=== PATIENT | female | born 1995 | race Caucasian/White ===

== ENCOUNTER 2016-03-16 18:21 | Emergency (ER) | payer OTHER ==
[~2016-03-16] VITALS: Ht 157.5 cm; Wt 82.0 kg
[~2016-03-16 18:21] MED LIST: BUTA1CAP PO; METR-1 PO; PARAIUD; antidepressant
[2016-03-16 18:23] VITALS: BP 145/63; PULSE 115; PULSE 15; RESP 16; TEMP 98.5; O2SAT 95
[2016-03-16] MEDS ORDERED: ACETAMINOPHEN 325 MG TAB PO ONE (18:45)
[2016-03-16] MEDS ORDERED: ONDANSETRON ODT 4 MG TAB PO ONE (18:45)
--- NOTE | 2016-03-16 18:47 | PD ---
HPI Chief Complaint: Cold / Flu Symptoms Time Seen by Provider: 18:38 Travel History International Travel<30 days: No Contact w/Intl Traveler<30days: No Traveled to known affect area: No History of Present Illness HPI 21-year-old female presents for evaluation of cough, congestion, ear pain and sore throat and fevers. Symptoms started 3 days ago. Fevers have been between 99 and 104. She reports the cough is productive with yellow and green sputum. She has a sore throat which hurts when she swallows. She has been using over- the-counter Tylenol but symptoms persisted which prompted evaluation. Denies any dysuria, flank pain, abdominal pain. She does endorse nausea and occasional "dry heaves" without emesis. Denies recent travel, rash. She has no other complaints. PFSH Past Medical History Bipolar Disorder: Yes Depression: Yes Developmental Delay: No Diabetes: No Diminished Hearing: No GERD: Yes Headaches: Yes Musculoskeletal: Yes (back pain x 1 and 1/2 years per pt) Respiratory: Yes (asthma) Immunizations Current: Yes Migraines: Yes Tetanus Vaccination: < 5 Years ?: Not LMP: 02/25/2016 : 1 Para: 1 Miscarriage: 0 : 0 Past Surgical History Section: Yes Social History Alcohol Use: No Tobacco Use: No Substance Use: No Allergies-Medications (Allergen,Severity, Reaction): Coded Allergies: Amoxicillin (Verified Allergy, Severe, HIVES, 03/16/16) Reported Meds & Prescriptions Reported Meds & Active Scripts Active Zofran (Ondansetron HCl) 4 Mg Tab 4 Mg PO Q6HR PRN Reported Paragard Intrauterine Cp Bleacher Operator (Copper (Iud)) 1 Iud Iud Review of Systems Except as stated in HPI: all other systems reviewed are Neg Physical Exam Narrative GENERAL: Well-developed well-nourished female in no acute distress SKIN: Warm and dry. HEAD: Atraumatic. Normocephalic. EYES: Pupils equal and round. No scleral icterus. No injection or drainage. ENT: No nasal bleeding or discharge. Mucous membranes pink and moist. Oropharyngeal erythema without exudate. Uvula midline with no mass effect. Tympanic membranes appear normal without erythema or fluid level. NECK: Trachea midline. No JVD. Mild tender anterior cervical lymphadenopathy. Neck supple with full range of motion. CARDIOVASCULAR: Regular rate and rhythm. No murmur appreciated. RESPIRATORY: No accessory muscle use. Clear to auscultation. Breath sounds equal bilaterally. GASTROINTESTINAL: Abdomen soft, non-tender, nondistended. Data Data Last Documented VS Vital Signs Date Time Temp Pulse Resp B/P Pulse Ox O2 Delivery O2 Flow Rate FiO2 03/16/16 19:52 90 18 123/66 97 Room Air 03/16/16 18:23 98.5 Orders Chest, Single Ap (03/16/16 ) Group A Rapid Strep Screen (03/16/16 18:44) Influenzae A/B Antigen (03/16/16 18:44) Ed Urine Pregnancytest Poc (03/16/16 18:44) Ondansetron Odt (Zofran Odt) (03/16/16 18:45) Acetaminophen (Tylenol) (03/16/16 18:45) Strep Culture (Group A) (03/16/16 18:50) MDM Medical Decision Making Medical Screen Exam Complete: Yes Emergency Medical Condition: Yes Medical Record Reviewed: Yes Interpretation(s) Chest x-ray no acute abnormalities Rapid strep screen, influenza antigen negative Differential Diagnosis Bronchitis, pneumonia, influenza, otitis media, pharyngitis, epiglottitis, retropharyngeal abscess, infectious mononucleosis Narrative Course 21-year-old female with 3 days of cough, congestion, sore throat, fevers. Physical examination is reassuring. Her throat is mildly erythematous without exudate or evidence of peritonsillar abscess. Lungs are clear. She is mildly tachycardic likely secondary to low-grade fevers. I suspect a viral upper respiratory illness. Rapid strep screen and a chest x-ray were performed and they are both negative. Influenza antigen test was negative. The patient was given Tylenol and Zofran and upon reexamination she feels better. Her pulse is 88. Plan is to discharge the patient with a short course of Zofran. Diagnosis Primary Impression: Viral upper respiratory infection Additional Instructions: Take [id number] Tylenol or ibuprofen as needed for fever. Dosing instructions and the bottle. Stay well hydrated well-nourished. Take Zofran for nausea. If you develop any acutely worsening symptoms return to the emergency room. Med/Other Pt SpecificInfo: Prescription(s) given Scripts Ondansetron (Zofran)4 Mg Tab4 Mg PO Q6HR PRN (NAUSEA OR VOMITING) #20 TAB Ref 0 Prov:Lisa Macias MD 03/16/16 Disposition: 01 DISCHARGE HOME Condition: Stable Shane Mejia Mar 16, 2016 18:47
[2016-03-16] MEDS ORDERED: ZOFR4TAB PO (19:46)
[2016-03-16 19:52] VITALS: BP 123/66; PULSE 90; RESP 18; O2SAT 97
--- NOTE | 2016-03-16 20:45 | RADRPT ---
EXAM DATE/TIME: 03/16/2016 19:04 [facility] COMPARISON: No previous studies available for comparison. INDICATIONS : Cough, Short of Breath, Chest Pain. MEDICAL HISTORY : Asthma. SURGICAL HISTORY : None. ENCOUNTER: Initial ACUITY: 3 days PAIN SCORE: 8/10 LOCATION: Bilateral chest FINDINGS: A single view of the chest demonstrates the lungs to be symmetrically aerated without evidence of mas s, infiltrate or effusion. The cardiomediastinal contours are unremarkable. Osseous structures are intact. CONCLUSION: No acute disease. Brando Lanza MD on March 16, 2016 at 20:43 Board Certified Radiologist. This report was verified electronically.
[2016-03-26] MEDS ORDERED: FLUC150T PO (09:45)
[2016-03-26] MEDS ORDERED: METR-1 PO (09:45)
[2016-05-06] MEDS ORDERED: NORE1CAP PO (13:32)
[2016-07-17] MEDS ORDERED: ALBUAER3 INH (14:40)
== END 2016-03-16 20:45 | disposition home or self-care (01) ==
LOC: NEPE 18:21
DX: J06.9 Acute upper respiratory infection, unspecified (principal)
CPT/HCPCS: 71010; 84703; 87081; 87804; 87880; 99283

== ENCOUNTER 2016-04-26 23:25 | Emergency (ER) | payer OTHER ==
[~2016-04-26] VITALS: Ht 157.5 cm; Wt 73.0 kg
[~2016-04-26 23:25] MED LIST changes: -BUTA1CAP PO; +FLUC150T PO; -antidepressant
[2016-04-26 23:28] VITALS: BP 139/86; PULSE 94; RESP 15; TEMP 98.3; O2SAT 97
[2016-04-27] MEDS ORDERED: ONDANSETRON HCL 4 MG/2 ML VIAL IVP ONE (00:30)
[2016-04-27] MEDS ORDERED: KETOROLAC TROMETHAMINE 30 MG/ML (IVP) VIAL IV PUSH ONE (00:30)
--- NOTE | 2016-04-27 01:33 | PD ---
HPI Chief Complaint: Abdominal Pain Time Seen by Provider: 00:09 Travel History International Travel<30 days: No Contact w/Intl Traveler<30days: No Traveled to known affect area: No History of Present Illness HPI 21-year-old female arrives to the ER complaining of left lower quadrant pain for about 2 weeks. She states it feels similar to prior episode of ovarian cysts from about a year ago. She's had nausea. She denies vomiting and fever. She's had no abnormal vaginal bleeding or discharge. She has no urinary complaint. Last menstruation was about one month prior. She reports minimal vaginal spotting daily for the past week. It stopped yesterday. She reports she has an IUD and has since followed with Carla Lynn. No symptoms consistent with anemia. No fever. Tylenol and Motrin were minimall helpful at home. PFSH Past Medical History Bipolar Disorder: Yes Depression: Yes Developmental Delay: No Diabetes: No Diminished Hearing: No GERD: Yes Headaches: Yes Musculoskeletal: Yes (back pain x 1 and 1/2 years per pt) Respiratory: Yes (asthma) Immunizations Current: Yes Migraines: Yes ?: Unknown LMP: 03/30/16 : 1 Para: 1 Miscarriage: 0 : 0 Past Surgical History Section: Yes Gynecologic Surgery: Yes (C-SECT) Social History Alcohol Use: No Tobacco Use: Yes (1/2PPD) Substance Use: No Allergies-Medications (Allergen,Severity, Reaction): Coded Allergies: Amoxicillin (Verified Allergy, Severe, HIVES, 04/26/16) Reported Meds & Prescriptions Reported Meds & Active Scripts Active Bactrim DS (Sulfamethoxazole-Trimethoprim) 800-160 Mg Tab 1 Tab PO BID Ibuprofen 600 Mg Tab 600 Mg PO Q8HR PRN 14 Days Lortab (Hydrocodone-Acetaminophen) 5-325 Mg Tab 1-2 Tab PO Q6H PRN Reported Paragard Intrauterine Three Knife Trimmer (Copper (Iud)) 1 Iud Iud Review of Systems Except as stated in HPI: all other systems reviewed are Neg General / Constitutional: No: Fever, Chills Gastrointestinal: Positive: Abdominal Pain Physical Exam Narrative GENERAL: 21-year-old female pleasant well-nourished well-developed SKIN: Warm and dry. HEAD: Atraumatic. Normocephalic. EYES: Pupils equal and round. No scleral icterus. No injection or drainage. ENT: No nasal bleeding or discharge. Mucous membranes pink and moist. NECK: Trachea midline. No JVD. CARDIOVASCULAR: Regular rate and rhythm. No murmur appreciated. RESPIRATORY: No accessory muscle use. Clear to auscultation. Breath sounds equal bilaterally. GASTROINTESTINAL: Soft. Minimal tenderness to deep palpation in the left lower quadrant. No flank tenderness. MUSCULOSKELETAL: No obvious deformities. No clubbing. No cyanosis. No edema. NEUROLOGICAL: Awake and alert. No obvious cranial nerve deficits. Motor grossly within normal limits. Normal speech. PSYCHIATRIC: Appropriate mood and affect; insight and judgment normal. Data Data Last Documented VS Vital Signs Date Time Temp Pulse Resp B/P Pulse Ox O2 Delivery O2 Flow Rate FiO2 04/26/16 23:28 98.3 94 15 139/86 97 Room Air Vital signs reviewed Orders Urinalysis - C+S If Indicated (04/27/16 00:24) Iv Access Insert/Monitor (04/27/16 00:24) Ondansetron Inj (Zofran Inj) (04/27/16 00:30) Ed Urine Pregnancytest Poc (04/27/16 00:24) Ketorolac Inj (Toradol Inj) (04/27/16 00:30) Us Pelvis Comp W Dop Transvag (04/27/16 ) Urine Culture (04/27/16 01:49) Sulfamet-Trimeth Ds 800-160 Mg (Bactrim (04/27/16 02:45) Labs Laboratory Tests Test 04/27/16 01:49 Urine Color YELLOW Urine Turbidity HAZY Urine pH 5.5 Urine Specific [place] 1.027 Urine Protein TRACE mg/dL Urine Glucose (UA) NEG mg/dL Urine Ketones TRACE mg/dL Urine Occult Blood TRACE Urine Nitrite NEG Urine Bilirubin NEG Urine Urobilinogen LESS THAN 2.0 MG/DL Urine Leukocyte Esterase MOD Urine RBC 2 /hpf Urine WBC 21 /hpf Urine Squamous Epithelial 20 /hpf Cells Urine Transitional Epithelial <1 /hpf Cells Urine Renal Epithelial Cells <1 /hpf Urine Bacteria FEW /hpf Urine Mucus FEW /lpf Microscopic Urinalysis Comment CULTURE INDICATED MDM Medical Decision Making Medical Screen Exam Complete: Yes Emergency Medical Condition: Yes Medical Record Reviewed: Yes Differential Diagnosis IUP, UTI, ectopic , ov torsion, appendicitis, TOA, cervicitis, BV, Trichomoniasis, ov cyst, hernia, mittelschmerz, pain from menstruation Narrative Course Urine is negative. UA: cystitis of concern Last 24 hours Impressions Abdomen/Pelvis/Transvag US 04/27/16 0000 Signed Impressions: Service Date/Time: Friday, April 27, 2016 01:11 - CONCLUSION: 1. Intrauterine device present. Trace fluid in endocervical canal. 2. 1.5 cm right ovarian cyst. Tiny left ovarian cysts. Brando Lanza MD Pain improved marginally after toradol. We'll provide a dose of Lortab prior to discharge. Follow up with Carla Lynn. Return precautions discussed. Diagnosis Primary Impression: Pelvic pain Additional Impressions: Cystitis Ovarian cyst Qualified Code: N83.201 - Cysts of both ovaries Referrals: Wilma Leonard 2 days Additional Instructions: You have a choice when it comes to health care, and we are glad that you chose [facility]. Hopefully, we have met your expectations on today's visit. You are welcome to return to [facility] at any time, as we are committed to meeting the health care needs of our community. Med/Other Pt SpecificInfo: Prescription(s) given Scripts Sulfamethoxazole-Trimethoprim (Bactrim DS)800-160 Mg Tab1 Tab PO BID #6 TAB Ref 0 Prov:Jac Payne MD 04/27/16 Ibuprofen 600 Mg [id number] Mg PO Q8HR PRN (PAIN) 14 Days Ref 0 Prov:Jac Payne MD 04/27/16 Hydrocodone-Acetaminophen (Lortab)5-325 Mg Tab1-2 Tab PO Q6H PRN (PAIN SCALE 6 TO 10) #15 TAB Ref 0 Prov:Jac Payne MD 04/27/16 Disposition: DISCHARGE HOME Condition: Stable Jac Payne MD Apr 27, 2016 01:33
[2016-04-27] MEDS ORDERED: HYDR-3533 PO (01:38)
[2016-04-27] MEDS ORDERED: IBUP-232 PO (01:38)
[2016-04-27 02:35] LABS: BACTERIA, URINE FEW /hpf; BLOOD, URINE TRACE (NEG); COMMENT (UR) CULTURE INDICATED; CULTURE IF INDICATED CULTURE INDICATED; GLUCOSE,URINE NEG (NEG); KETONE, URINE TRACE mg/dL (NEG); MUCUS URINE FEW /lpf (OCC); NITRITE,URINE NEG (NEG); PH, URINE 5.5 (5.0-8.5); RENAL EPITHELIAL CELLS <1 /hpf; SQUAMOUS EPITHELIAL CELL URINE 20 /hpf (0-5); TRANSITIONAL EPI CELLS, URINE <1 /hpf; URINE COLOR YELLOW (YELLW/STRAW)
--- NOTE | 2016-04-27 02:35 | RADRPT ---
EXAM DATE/TIME: 04/27/2016 01:11 [facility] COMPARISON: No previous studies available for comparison. INDICATIONS : Left pelvic pain. MEDICAL HISTORY : Gastroesophageal reflux disease. Asthma. Headache. Left pelvic pain. SURGICAL HISTORY : section. ENCOUNTER: Initial ACUITY: 2 months PAIN SCORE: 9/10 LOCATION: Bilateral pelvis MEASUREMENTS: UTERUS: 7.3 x 3.4 x 4.8 cm ENDOMETRIAL STRIPE: 8 mm RIGHT OVARY: 3.3 x 2.3 x 3.1 cm LEFT OVARY: 3.1 x 2.2 x 2.5 cm FINDINGS: Intrauterine device is seen in the uterus. Trace fluid in the endocervical canal. 1.5 cm cyst right o vary. Tiny cysts in the left ovary. No significant free fluid. CONCLUSION: 1. Intrauterine device present. Trace fluid in endocervical canal. 2. 1.5 cm right ovarian cyst. Tiny left ovarian cysts. Brando Lanza MD on April 27, 2016 at 2:26 Board Certified Radiologist. This report was verified electronically.
[2016-04-27] MEDS ORDERED: BACT800T5 PO (02:42)
[2016-04-27] MEDS ORDERED: SULFAMETHOXAZOLE-TRIMETHOPRIM DS 800-160 MG TAB PO ONE (02:45)
[2016-04-27] MEDS ORDERED: ACETAMINOPHEN/HYDROcodone 325 MG/5 MG TAB PO ONE (03:00)
[2016-05-06] MEDS ORDERED: NORE1CAP PO (13:32)
[2016-07-17] MEDS ORDERED: ALBUAER3 INH (14:40)
== END 2016-04-27 03:58 | disposition home or self-care (01) ==
LOC: NEPC 23:25
DX: R10.2 Pelvic and perineal pain (principal); N30.90 Cystitis, unspecified without hematuria; N83.202 Unspecified ovarian cyst, left side; N83.201 Unspecified ovarian cyst, right side; B96.20 Unspecified Escherichia coli [E. coli] as the cause of diseases classified elsewhere; F17.200 Nicotine dependence, unspecified, uncomplicated; Z86.59 Personal history of other mental and behavioral disorders; Z87.19 Personal history of other diseases of the digestive system; Z87.39 Personal history of other diseases of the musculoskeletal system and connective tissue; Z87.09 Personal history of other diseases of the respiratory system; Z86.69 Personal history of other diseases of the nervous system and sense organs
CPT/HCPCS: 76830; 76856; 81001; 84703; 87077; 87086; 87186; 93975; 96374; 96375; 99284; J1885; J2405

== ENCOUNTER 2016-06-13 20:02 | Emergency (ER) | payer OTHER ==
[~2016-06-13] VITALS: Ht 157.5 cm; Wt 85.0 kg
[~2016-06-13 20:02] MED LIST changes: -FLUC150T PO; -METR-1 PO; +NORE1CAP PO; -PARAIUD
[2016-06-13 20:04] VITALS: BP 157/92; PULSE 92; RESP 14; TEMP 98.8; O2SAT 98
[2016-06-13] MEDS ORDERED: ONDANSETRON HCL 4 MG/2 ML VIAL IVP ONE (22:30)
[2016-06-13] MEDS ORDERED: SODIUM CHLOR 0.9% 1000 ML INJ 1,000 ML IV ONE (22:30)
[2016-06-13] MEDS ORDERED: LORazepam 0.5 MG TAB PO ONE (22:30)
[2016-06-13 22:49] LABS: BLOOD, URINE NEG (NEG); GLUCOSE,URINE NEG (NEG); KETONE, URINE NEG (NEG); NITRITE,URINE NEG (NEG); PH, URINE 6.5 (5.0-8.5); SQUAMOUS EPITHELIAL CELL URINE 2 /hpf (0-5); URINE COLOR YELLOW (YELLW/STRAW)
[2016-06-13 22:50] LABS: AUTOMATED NEUTROPHIL # 4.9 TH/MM3 (1.8-7.7); BASOPHIL # 0.1 TH/MM3 (0-0.2); BASOPHIL % 0.9 % (0.0-2.0); COMMENT (UR) CULT NOT INDICATED; CULTURE IF INDICATED CULT NOT INDICATED; EOSINOPHIL # 0.3 TH/MM3 (0-0.4); EOSINOPHIL % 3.2 % (0.0-4.0); HEMATOCRIT 40.7 % (35.0-46.0); HEMO FLAGS DIFF FINAL; LYMPH % 27.7 % (9.0-44.0); LYMPHOCYTE # 2.2 TH/MM3 (1.0-4.8); MEAN CELL VOLUME 87.3 FL (80.0-100.0); MEAN CORPUSCULAR HEMOGLOBIN 30.7 PG (27.0-34.0); MEAN CORPUSCULAR HGB CONC 35.2 % (32.0-36.0); NEUT % 61.2 % (16.0-70.0); PLATELET COUNT 202 TH/MM3 (150-450); RED BLOOD COUNT 4.66 MIL/MM3 (4.00-5.30); RED CELL DISTRIBUTION WIDTH 12.6 % (11.6-17.2); WHITE BLOOD COUNT 8.1 TH/MM3 (4.0-11.0)
[2016-06-13 23:08] LABS: ANION GAP 5 MEQ/L (5-15); BICARBONATE 27.7 MEQ/L (21.0-32.0); BLOOD UREA NITROGEN 14 MG/DL (7-18); CHLORIDE 110 MEQ/L (98-107); GLOMERULAR FILTRATION RATE 75 ML/MIN (>89); POTASSIUM 4.1 MEQ/L (3.5-5.1); SODIUM (NA) 143 MEQ/L (136-145)
[2016-06-13 23:12] LABS: BETA HCG QUANT LESS THAN 1 MIU/ML (0-5)
--- NOTE | 2016-06-13 23:20 | PD ---
HPI Chief Complaint: Body Sander Problem/Complaint Time Seen by Provider: 22:25 Travel History International Travel<30 days: No Contact w/Intl Traveler<30days: No Traveled to known affect area: No History of Present Illness HPI 21-year-old female complains of lower pelvis pain for about 2 days. She reports nausea and vomiting 4 days. She's had no vaginal bleeding or discharge. Last menstruation was 1 month ago. She reports urinary frequency and dysuria for 2 days. She reports a history of ovarian cysts. She states it feels similar to an ovarian cyst. The patient is a 1 para 1. After left the room the patient reported to the nurse she took 4 at home tests 2 which were positive and 2 which were negative. PFSH Past Medical History Bipolar Disorder: Yes Depression: Yes Developmental Delay: No Diabetes: No Diminished Hearing: No GERD: Yes Headaches: Yes Musculoskeletal: Yes (back pain x 1 and 1/2 years per pt) Respiratory: Yes (asthma) Immunizations Current: Yes Migraines: Yes Influenza Vaccination: No ?: Unknown LMP: 05/13/16 : 1 Para: 1 Miscarriage: 0 : 0 Ovarian Cysts: Yes Past Surgical History Section: Yes Gynecologic Surgery: Yes (C-SECT) Social History Alcohol Use: No Tobacco Use: Yes (1/2PPD) Substance Use: No Allergies-Medications (Allergen,Severity, Reaction): Coded Allergies: Amoxicillin (Verified Allergy, Severe, HIVES, 06/13/16) Reported Meds & Prescriptions Reported Meds & Active Scripts Active Taytulla (Norethindrone-Ethinyl Estradiol-Fe) 1-20 mg-Mcg Cap 1 Tab PO DAILY Review of Systems Except as stated in HPI: all other systems reviewed are Neg Physical Exam Narrative GENERAL: 21-year-old female well-nourished develop no acute distress SKIN: Focused skin assessment warm/dry. HEAD: Atraumatic. Normocephalic. EYES: Pupils equal and round. No scleral icterus. No injection or drainage. ENT: No nasal bleeding or discharge. Mucous membranes pink and moist. NECK: Trachea midline. No JVD. CARDIOVASCULAR: Regular rate and rhythm. No murmur appreciated. RESPIRATORY: No accessory muscle use. Clear to auscultation. Breath sounds equal bilaterally. GASTROINTESTINAL: Soft. Nonspecific generalized tenderness. MUSCULOSKELETAL: No obvious deformities. No clubbing. No cyanosis. No edema. NEUROLOGICAL: Awake and alert. No obvious cranial nerve deficits. Motor grossly within normal limits. Normal speech. PSYCHIATRIC: Appropriate mood and affect; insight and judgment normal. Data Data Last Documented VS Vital Signs Date Time Temp Pulse Resp B/P Pulse Ox O2 Delivery O2 Flow Rate FiO2 06/13/16 23:44 18 06/13/16 23:39 98.1 72 128/83 100 Room Air Vital signs reviewed Orders Lorazepam (Ativan) (06/13/16 22:30) Urinalysis - C+S If Indicated (06/13/16 22:26) Iv Access Insert/Monitor (06/13/16 22:26) Ecg Monitoring (06/13/16 22:26) Ondansetron Inj (Zofran Inj) (06/13/16 22:30) Ed Urine Pregnancytest Poc (06/13/16 22:26) Sodium Chlor 0.9% 1000 Ml Inj (Ns 1000 M (06/13/16 22:30) Complete Blood Count With Diff (06/13/16 22:26) Basic Metabolic Panel (Bmp) (06/13/16 22:26) Beta Hcg (Quant/Titer) (06/13/16 22:32) Labs Laboratory Tests Test 06/13/16 22:32 White Blood Count 8.1 TH/MM3 Red Blood Count 4.66 MIL/MM3 Hemoglobin 14.3 GM/DL Hematocrit 40.7 % Mean Corpuscular Volume 87.3 FL Mean Corpuscular Hemoglobin 30.7 PG Mean Corpuscular Hemoglobin 35.2 % Concent Red Cell Distribution Width 12.6 % Platelet Count 202 TH/MM3 Mean Platelet Volume 10.4 FL Neutrophils (%) (Auto) 61.2 % Lymphocytes (%) (Auto) 27.7 % Monocytes (%) (Auto) 7.0 % Eosinophils (%) (Auto) 3.2 % Basophils (%) (Auto) 0.9 % Neutrophils # (Auto) 4.9 TH/MM3 Lymphocytes # (Auto) 2.2 TH/MM3 Monocytes # (Auto) 0.6 TH/MM3 Eosinophils # (Auto) 0.3 TH/MM3 Basophils # (Auto) 0.1 TH/MM3 CBC Comment DIFF FINAL Differential Comment Urine Color YELLOW Urine Turbidity CLEAR Urine pH 6.5 Urine Specific [place] 1.022 Urine Protein NEG mg/dL Urine Glucose (UA) NEG mg/dL Urine Ketones NEG mg/dL Urine Occult Blood NEG Urine Nitrite NEG Urine Bilirubin NEG Urine Urobilinogen LESS THAN 2.0 MG/DL Urine Leukocyte Esterase NEG Urine WBC LESS THAN 1 /hpf Urine Squamous Epithelial 2 /hpf Cells Microscopic Urinalysis Comment CULT NOT INDICATED Sodium Level 143 MEQ/L Potassium Level 4.1 MEQ/L Chloride Level 110 MEQ/L Carbon Dioxide Level 27.7 MEQ/L Anion Gap 5 MEQ/L Blood Urea Nitrogen 14 MG/DL Creatinine 0.93 MG/DL Estimat Glomerular Filtration 75 ML/MIN Rate Random Glucose 86 MG/DL Calcium Level 8.6 MG/DL Human Chorionic Gonadotropin, LESS THAN 1 Quant MIU/ML MDM Medical Decision Making Medical Screen Exam Complete: Yes Emergency Medical Condition: Yes Medical Record Reviewed: Yes Differential Diagnosis IUP, UTI, ectopic , ov torsion, appendicitis, TOA, cervicitis, BV, Trichomoniasis, ov cyst, hernia, mittelschmerz, pain from menstruation Narrative Course CBC & BMP Diagram 06/13/16 22:32 Beta hCG less than 1 Urinalysis no UTI The patient is resting comfortably and feels better, is alert and in no distress. The patients results and examination findings were discussed. The repeat examination is unremarkable and benign. The history, exam, diagnostic testing, and current condition do not suggest any significant pathology to warrant further testing, continued ED treatment, admission, or surgical evaluation at this point. The vital signs have been stable. The patient does not have uncontrollable pain, intractable vomiting, or other significant symptoms. The patient's condition is stable and appropriate for discharge. The patient will pursue further outpatient evaluation with a primary care physician or other designated or consulting physician as indicated in the discharge instructions. The patient expressed understanding and was agreeable with this plan. Diagnosis Primary Impression: Pelvic pain Referrals: Manager [employer] 2 days Additional Instructions: You have a choice when it comes to health care, and we are glad that you chose [facility]. Hopefully, we have met your expectations on today's visit. You are welcome to return to [facility] at any time, as we are committed to meeting the health care needs of our community. Med/Other Pt SpecificInfo: No Change to Meds Disposition: 01 DISCHARGE HOME Condition: Stable Jac Payne MD June 13, 2016 23:20
[2016-06-13 23:39] VITALS: BP 128/83; PULSE 72; RESP 18; TEMP 98.1; O2SAT 100
[2016-07-17] MEDS ORDERED: ALBUAER3 INH (14:40)
== END 2016-06-14 00:02 | disposition home or self-care (01) ==
LOC: NEPD 20:02
DX: R10.2 Pelvic and perineal pain (principal); R11.2 Nausea with vomiting, unspecified; R30.0 Dysuria; R35.0 Frequency of micturition; N83.209 Unspecified ovarian cyst, unspecified side; J45.909 Unspecified asthma, uncomplicated; F17.210 Nicotine dependence, cigarettes, uncomplicated
CPT/HCPCS: 80048; 81001; 84702; 84703; 85025; 96374; 99284; J2405; J7030

== ENCOUNTER 2016-07-07 14:22 | Emergency (ER) | payer OTHER ==
[~2016-07-07] VITALS: Ht 157.5 cm; Wt 85.0 kg
[2016-07-07 14:24] VITALS: BP 128/90; PULSE 82; RESP 16; TEMP 98.4; O2SAT 100
--- NOTE | 2016-07-07 14:46 | PD ---
HPI Chief Complaint: GI Complaint Time Seen by Provider: 14:29 Travel History International Travel<30 days: No Contact w/Intl Traveler<30days: No Traveled to known affect area: No History of Present Illness HPI The patient was seen and examined in the presence of the nurse. This patient complains of having a hoarse voice and cough and runny nose and congestion. Duration 2 days. Severity is moderate. No alleviating factors. PFSH Past Medical History Bipolar Disorder: Yes Depression: Yes Developmental Delay: No Diabetes: No Diminished Hearing: No GERD: Yes Headaches: Yes Musculoskeletal: Yes (back pain x 1 and 1/2 years per pt) Respiratory: Yes (asthma) Immunizations Current: Yes Migraines: Yes ?: Unknown LMP: 05/13/16 : 1 Para: 1 Miscarriage: 0 : 0 Ovarian Cysts: Yes Past Surgical History Section: Yes Gynecologic Surgery: Yes (C-SECT) Social History Alcohol Use: No Tobacco Use: Yes (12PPD) Substance Use: No Allergies-Medications (Allergen,Severity, Reaction): Coded Allergies: Amoxicillin (Verified Allergy, Severe, HIVES, 07/07/16) Reported Meds & Prescriptions Reported Meds & Active Scripts Active Taytulla (Norethindrone-Ethinyl Estradiol-Fe) 1-20 mg-Mcg Cap 1 Tab PO DAILY Review of Systems HENT: No: Headaches Respiratory: Positive: Cough Gastrointestinal: No: Vomiting Physical Exam Narrative GENERAL: Well-nourished, well-developed patient in no apparent distress. SKIN: Focused skin assessment reveals no rash and nodules. Skin is Warm and dry. HEAD: Atraumatic. Normocephalic. EYES: Pupils equal and round. No scleral icterus. No injection or drainage. ENT: No nasal bleeding or discharge. Mucous membranes pink and moist. NECK: Trachea midline. No JVD. CARDIOVASCULAR: Regular rate and rhythm. No murmur appreciated. RESPIRATORY: No accessory muscle use. Clear to auscultation. Breath sounds equal bilaterally. GASTROINTESTINAL: Abdomen soft, non-tender, nondistended. Hepatic and splenic margins not palpable. MUSCULOSKELETAL: No obvious deformities. No clubbing. No cyanosis. No edema. NEUROLOGICAL: Awake and alert. No obvious cranial nerve deficits. Motor grossly within normal limits. Normal speech. PSYCHIATRIC: Appropriate mood and affect; insight and judgment normal. Data Data Last Documented VS Vital Signs Date Time Temp Pulse Resp B/P Pulse Ox O2 Delivery O2 Flow Rate FiO2 07/07/16 14:24 98.4 82 16 128/90 100 MDM Medical Decision Making Medical Screen Exam Complete: Yes Emergency Medical Condition: Yes Medical Record Reviewed: Yes Differential Diagnosis Laryngitis, bronchitis, URI Narrative Course I have reviewed the patient's electronic medical record. Patient had a recent ER visit and I reviewed that. Her beta hCG was negative at that time. This was earlier in June 2016 Urine is positive today She must be very early Clinically she looks like she has a viral URI/laryngitis No indication for antibiotics Recommend primary care follow-up as well as care Diagnosis Primary Impression: Laryngitis Additional Impressions: Upper respiratory infection Qualified Code: J06.9 - Viral upper respiratory tract infection Qualified Code: Z33.1 - , unspecified gestational age Additional Instructions: The patient was advised to follow up with their physician and return if they worsen. Med/Other Pt SpecificInfo: Other Disposition: 01 DISCHARGE HOME Condition: Stable Milton Hargrove MD July 07, 2016 14:46
[2016-07-17] MEDS ORDERED: ALBUAER3 INH (14:40)
== END 2016-07-07 14:57 | disposition home or self-care (01) ==
LOC: PHED 14:22
DX: J04.0 Acute laryngitis (principal); J06.9 Acute upper respiratory infection, unspecified; Z33.1 Pregnant state, incidental
CPT/HCPCS: 84703; 99282

== ENCOUNTER 2016-08-25 19:05 | Emergency (ER) | payer OTHER ==
[~2016-08-25] VITALS: Ht 157.5 cm; Wt 85.0 kg
[~2016-08-25 19:05] MED LIST changes: +ALBUAER3 INH; -NORE1CAP PO; +PREN1CHW7 PO
[2016-08-25 19:07] VITALS: BP 120/72; PULSE 82; RESP 16; TEMP 98.8; O2SAT 97
[2016-08-25 20:35] VITALS: RESP 16; O2SAT 98
[2016-08-25 21:04] LABS: AUTOMATED NEUTROPHIL # 4.7 TH/MM3 (1.8-7.7); BASOPHIL % 0.3 % (0.0-2.0); EOSINOPHIL # 0.2 TH/MM3 (0-0.4); EOSINOPHIL % 2.3 % (0.0-4.0); HEMATOCRIT 39.1 % (35.0-46.0); HEMO FLAGS DIFF FINAL; LYMPH % 19.9 % (9.0-44.0); LYMPHOCYTE # 1.3 TH/MM3 (1.0-4.8); MEAN CELL VOLUME 88.4 FL (80.0-100.0); MEAN CORPUSCULAR HEMOGLOBIN 30.5 PG (27.0-34.0); MEAN CORPUSCULAR HGB CONC 34.6 % (32.0-36.0); MONO % 6.9 % (0.0-8.0); NEUT % 70.6 % (16.0-70.0); PLATELET COUNT 162 TH/MM3 (150-450); RED BLOOD COUNT 4.42 MIL/MM3 (4.00-5.30); RED CELL DISTRIBUTION WIDTH 12.9 % (11.6-17.2); WHITE BLOOD COUNT 6.7 TH/MM3 (4.0-11.0)
--- NOTE | 2016-08-25 21:12 | PD ---
HPI Chief Complaint: Abdominal Pain Time Seen by Provider: 20:30 Travel History International Travel<30 days: No Contact w/Intl Traveler<30days: No Traveled to known affect area: No History of Present Illness HPI The patient is a 21 year old female who presents to the [facility] emergency department with a history of intermittent pelvic pain that she reports is been going on for the last 2-3 weeks. She reports that she is currently . She is a at 13 weeks 2/7 days gestation by an initial ultrasound that was done a few weeks ago. The patient reports that she is followed by Carla Morse for her PROGRAM CONSULTANT care. She reports that she did mention this to Carla, however as the pain was intermittent she recommended continued following the pain was persistent she should call back for additional evaluation. She reports that C was not in the office today, that she came to the emergency department. She reports that the pain has been constant for the last 3 days. She reports that the pain is an aching sensation. She denies having any fevers or chills. She reports having urinary frequency with the , however no dysuria or urinary urgency. She denies having any nausea or vomiting. She denies having any vaginal discharge or vaginal bleeding. She denies having any concerns about sexually transmitted infections. She does report having a history of ovarian cysts. Her last was delivered by C -section approximately a year ago. Otherwise on review of systems, the patient denies any recent cough, congestion, neck pain, chest pain, shortness of breath , diarrhea, or neurologic symptoms. LMP: Sometime in May Past Medical History Narrative Medical The patient's past medical history is significant for bipolar disorder, acid reflux, migraine headaches, chronic back pain, asthma, and ovarian cysts. Asthma: Yes Bipolar Disorder: Yes Depression: Yes Developmental Delay: No Diabetes: No Diminished Hearing: No GERD: Yes Headaches: Yes Musculoskeletal: Yes (back pain x 1 and 1/2 years per pt) Respiratory: Yes (asthma) Immunizations Current: Yes Migraines: Yes ?: LMP: 06/05/16 : 1 Para: 1 Miscarriage: 0 : 0 Ovarian Cysts: Yes Past Surgical History Narrative Surgical The patient's past surgical history is significant for 1 prior . Section: Yes Gynecologic Surgery: Yes (C-SECT) Social History Alcohol Use: No Tobacco Use: No Substance Use: No Allergies-Medications (Allergen,Severity, Reaction): Coded Allergies: Amoxicillin (Verified Allergy, Severe, HIVES, 08/25/16) Reported Meds & Prescriptions Reported Meds & Active Scripts Active Vitafol Gummies 3.33-0.333-34.8 mg ( Vit W/ Ferric Phospha) 1 Chw Chw 3 Tab PO DAILY Reported Proair Hfa 8.5 GM Inh (Albuterol Sulfate) 90 Mcg/Act Aer 1 Puff INH Q4H PRN 108 mcg/actuation Review of Systems Except as stated in HPI: all other systems reviewed are Neg General / Constitutional: No: Fever Eyes: No: Visual changes HENT: No: Headaches Cardiovascular: No: Chest Pain or Discomfort Respiratory: No: Shortness of Breath Gastrointestinal: Positive: Abdominal Pain, No: Nausea, Vomiting, Diarrhea, Changes in Bowel Habits, Indigestion, Loss of Appetite Genitourinary: No: Dysuria Musculoskeletal: No: Pain Skin: No Rash Neurologic: No: Weakness, Focal Abnormalities, Change in Mentation, Slurred Speech, Sensory Disturbance Psychiatric: No: Depression Endocrine: No: Polydipsia Hematologic/Lymphatic: No: Easy Bruising Physical Exam Narrative General: The patient is a well-developed well-nourished female in no acute distress. Head and Neck exam: Head is normocephalic atraumatic. Eyes: EOMI, pupils are equal round and reactive to light. Nose: Midline septum with pink mucous membranes Mouth: Dentition unremarkable. Moist mucus membranes. Posterior oropharynx is not erythematous. No tonsillar hypertrophy. Uvula midline. Airway patent. Neck: No palpable lymphadenopathy. No nuchal rigidity. No thyromegaly. Cardiovascular: Regular rate and rhythm without murmurs, gallops, or rubs. Lungs: Clear to auscultation bilaterally. No wheezes, rhonchi, or rales. Abdomen: Soft, with reported tenderness on palpation along the suprapubic area and bilateral lower quadrants of the abdomen. No guarding, rebound, or rigidity. Normal bowel sounds are audible. No tenderness specifically over McBurney's point. Negative [place] sign. Extremities: No clubbing, cyanosis, or edema. 2+ pulses in all 4 extremities. No calf tenderness on palpation. Back: No costovertebral angle tenderness to palpation. Neurologic Exam: Grossly nonfocal. Skin Exam: No rash noted. Intact skin that is warm and dry. Gynecologic exam: The patient was placed in the dorsal lithotomy position. Her external genitalia were examined. She had no evidence of rash or lesions. The speculum was placed into her vagina and the cervix was identified. She had a physiologic appearing clear white discharge. No cervical friability. On Bimanual exam: she has no cervical motion tenderness. No adnexal tenderness or prominence noted on palpation. No uterine tenderness, however she does have palpable enlargement consistent with . Data Data Last Documented VS Vital Signs Date Time Temp Pulse Resp B/P Pulse Ox O2 Delivery O2 Flow Rate FiO2 08/25/16 20:35 16 98 Room Air 08/25/16 19:07 98.8 82 120/72 Orders Complete Blood Count With Diff (08/25/16 20:32) Comprehensive Metabolic Panel (08/25/16 20:32) Lipase (08/25/16 20:32) Urinalysis - C+S If Indicated (08/25/16 20:32) Complete Rh (08/25/16 20:32) Magnesium (Mg) (08/25/16 20:32) Iv Access Insert/Monitor (08/25/16 20:32) Ecg Monitoring (08/25/16 20:32) Oximetry (08/25/16 20:32) Beta Hcg (Quant/Titer) (08/25/16 20:32) Wet Prep Profile (08/25/16 20:32) Ed Poc Ultrasound (08/25/16 ) Gc And Chlamydia Pcr (08/25/16 21:14) Nitrofurantoin Monohyd Macrocr (Macrobid (08/25/16 21:45) Labs Laboratory Tests Test 08/25/16 08/25/16 19:30 20:45 Clue Cells (Wet Prep) NONE SEEN Vaginal Trichomonas (Wet Prep) NONE SEEN Vaginal Yeast (Wet Prep) NONE SEEN White Blood Count 6.7 TH/MM3 Red Blood Count 4.42 MIL/MM3 Hemoglobin 13.5 GM/DL Hematocrit 39.1 % Mean Corpuscular Volume 88.4 FL Mean Corpuscular Hemoglobin 30.5 PG Mean Corpuscular Hemoglobin 34.6 % Concent Red Cell Distribution Width 12.9 % Platelet Count 162 TH/MM3 Mean Platelet Volume 10.4 FL Neutrophils (%) (Auto) 70.6 % Lymphocytes (%) (Auto) 19.9 % Monocytes (%) (Auto) 6.9 % Eosinophils (%) (Auto) 2.3 % Basophils (%) (Auto) 0.3 % Neutrophils # (Auto) 4.7 TH/MM3 Lymphocytes # (Auto) 1.3 TH/MM3 Monocytes # (Auto) 0.5 TH/MM3 Eosinophils # (Auto) 0.2 TH/MM3 Basophils # (Auto) 0.0 TH/MM3 CBC Comment DIFF FINAL Differential Comment Urine Color YELLOW Urine Turbidity HAZY Urine pH 7.5 Urine Specific Dennis 1.031 Urine Protein TRACE mg/dL Urine Glucose (UA) NEG mg/dL Urine Ketones NEG mg/dL Urine Occult Blood NEG Urine Nitrite NEG Urine Bilirubin NEG Urine Urobilinogen LESS THAN 2.0 MG/DL Urine Leukocyte Esterase NEG Urine RBC 2 /hpf Urine WBC 1 /hpf Urine Squamous Epithelial 3 /hpf Cells Urine Amorphous Sediment OCC Urine Bacteria RARE /hpf Urine Mucus FEW /lpf Microscopic Urinalysis Comment CULT NOT INDICATED Sodium Level 138 MEQ/L Potassium Level 3.9 MEQ/L Chloride Level 108 MEQ/L Carbon Dioxide Level 22.2 MEQ/L Anion Gap 8 MEQ/L Blood Urea Nitrogen 11 MG/DL Creatinine 0.61 MG/DL Estimat Glomerular Filtration 122 ML/MIN Rate Random Glucose 74 MG/DL Calcium Level 8.8 MG/DL Magnesium Level 1.9 MG/DL Total Bilirubin 0.4 MG/DL Aspartate Amino Transf 9 U/L (AST/SGOT) Alanine Aminotransferase 12 U/L (ALT/SGPT) Alkaline Phosphatase 50 U/L Total Protein 7.0 GM/DL Albumin 3.1 GM/DL Lipase 90 U/L Human Chorionic Gonadotropin, 41732 MIU/ML Quant Blood Type B POSITIVE Rho(D) Type POSITIVE MDM Medical Decision Making Medical Screen Exam Complete: Yes Emergency Medical Condition: Yes Medical Record Reviewed: Yes Differential Diagnosis Threatened miscarriage, versus round ligament pain, versus urinary tract infection, versus cervicitis. Narrative Course During the course of the patients emergency department visit, the patients history, examination, and differential diagnosis were reviewed with the patient. The patient had IV access obtained and blood work sent for analysis. The patient was placed on a cardiac tech with oximetry and blood pressure monitoring. The patient was initially provided Tylenol for pain. The patients laboratory studies were reviewed and remarkable for a white count of 6.7, hemoglobin 13.5, platelets 162 with 70.6 neutrophils, lymphocytes 19.9, monocytes 6.9, CMP is remarkable for chloride of 108, albumin 3.1, AST 9, lipase 90, quantitative beta hCG is 12,591, urinalysis shows hazy urine, rare bacteria, given the bacteriuria in the patient was given Macrobid 100 by mouth 1 wet prep was negative. Blood type is noted to be B+. A bedside ultrasound done by me shows an intrauterine with heart activity, active fetus on examination. I suspect that the patient's pain is related to uterine enlargement with . The patient is instructed regarding the importance of close follow-up with her PROGRAM CONSULTANT. The patient will be discharged home with a prescription for Macrobid. The patient is resting comfortably and feels better, is alert and in no distress. The patients results and examination findings were discussed with the patient. The repeat examination is unremarkable and benign. The history, exam, diagnostic testing, and current condition do not suggest any significant pathology to warrant further testing, continued ED treatment, admission, or surgical evaluation at this point. The vital signs have been stable. The patient does not have uncontrollable pain, intractable vomiting, or other significant symptoms. The patient's condition is stable and appropriate for discharge. The patient will pursue further outpatient evaluation with a primary care physician or other designated or consulting physician as indicated in the discharge instructions. The patient expressed understanding and was agreeable with this plan. Procedures Procedure Narrative Emergency Department Pelvic ultrasound was performed with patient consent. The curvilinear probe was used in the transverse and sagittal views within the suprapubic region revealing single intrauterine . heart rate was 160. Active fetus noted on examination. Diagnosis Primary Impression: Abdominal pain affecting Additional Impression: Asymptomatic bacteriuria during Referrals: Gardening Manager 2 days Patient Instructions: Abdominal Pain in (ED), General Instructions, Urinary Tract Infection in (ED) Additional Instructions: Take Tylenol as needed for discomfort as written on the package Med/Other Pt SpecificInfo: Prescription(s) given Disposition: 01 DISCHARGE HOME Condition: Stable Cheyenne Caban MD Aug 25, 2016 21:12
[2016-08-25 21:20] LABS: ANION GAP 8 MEQ/L (5-15); AST (GOT) 9 U/L (15-37); BICARBONATE 22.2 MEQ/L (21.0-32.0); BLOOD UREA NITROGEN 11 MG/DL (7-18); CHLORIDE 108 MEQ/L (98-107); GLOMERULAR FILTRATION RATE 122 ML/MIN (>89); MAGNESIUM 1.9 MG/DL (1.5-2.5); POTASSIUM 3.9 MEQ/L (3.5-5.1); SODIUM (NA) 138 MEQ/L (136-145)
[2016-08-25 21:21] LABS: ALT (GPT) 12 U/L (10-53)
[2016-08-25 21:35] LABS: BACTERIA, URINE RARE /hpf; BLOOD, URINE NEG (NEG); COMMENT (UR) CULT NOT INDICATED; CULTURE IF INDICATED CULT NOT INDICATED; GLUCOSE,URINE NEG (NEG); KETONE, URINE NEG (NEG); MUCUS URINE FEW /lpf (OCC); NITRITE,URINE NEG (NEG); PH, URINE 7.5 (5.0-8.5); SQUAMOUS EPITHELIAL CELL URINE 3 /hpf (0-5); URINE COLOR YELLOW (YELLW/STRAW)
[2016-08-25 21:37] LABS: ALKALINE PHOSPHATASE 50 U/L (45-117); BETA HCG QUANT 12591 MIU/ML (0-5); TOTAL BILIRUBIN ADULT 0.4 MG/DL (0.2-1.0)
[2016-08-25] MEDS ORDERED: NITROFURANTOIN MONOHYD MACROCR 100 MG CAP PO ONE (21:45)
[2016-08-25] MEDS ORDERED: ACETAMINOPHEN 325 MG TAB PO ONE (22:00)
[2016-08-25] MEDS ORDERED: MACR100C2 PO (22:02)
[2016-08-25 23:36] LABS: CHLAMYDIA PCR NOT DETECTED (NOT DETECT); NEISSERIA PCR NOT DETECTED (NOT DETECT)
== END 2016-08-25 22:22 | disposition home or self-care (01) ==
LOC: NEPE 19:05
DX: O26.899 Other specified pregnancy related conditions, unspecified trimester (principal); R82.71 Bacteriuria; R10.9 Unspecified abdominal pain; J45.909 Unspecified asthma, uncomplicated; F31.9 Bipolar disorder, unspecified; K21.9 Gastro-esophageal reflux disease without esophagitis; Z3A.13 13 weeks gestation of pregnancy; Z34.91 Encounter for supervision of normal pregnancy, unspecified, first trimester
CPT/HCPCS: 80053; 81001; 83690; 83735; 84702; 85025; 86901; 87210; 87491; 87591; 99284

== ENCOUNTER 2017-01-16 11:38 | Emergency (ER) | payer OTHER ==
--- NOTE | 2017-01-16 12:49 | PD ---
HPI Chief Complaint pelvic and low back pain Date Seen: Jan 16, 2017 Time Seen: 12:00 Travel History International Travel<30 Days: No Contact w/Intl Traveler<30Days: No Known Affected Area: No History of Present Illness HPI Ms Oconnor is a 21YO at 33/6 weeks w/PMHx chronic migraines and bilateral ovarian cysts who presents to the OB ED with pelvic and low back pain. Pain has been getting progressively worse and 10/10 on pain scale. Pt denies vaginal bleeding or discharge, dysuria, contractions. Pt last seen at [facility] yesterday with no problems noted. CBC was drawn yesterday to follow up 12/10 CBC with platelets at 148. Pt with Hx preeclampsia in last requiring emergent C /S at 35 weeks. Pt on ASA 81 mg and Tums this and BP 117/70 today; pt also taking PNV. Pt states she is hydrating well. Denies CP, SOB, V/D, DVT pain , but is nauseous. Weeks Gestation: 33 Para: 1 : 2 Miscarriage: 0 : 0 History Past Medical History Narrative Medical chronic migraines bilateral ovarian cysts Obstetric History Obstetric History Hx preeclampsia C/S at 35 weeks Pap negative 07/17 Hx HPV Past Surgical History Narrative Surgical C/S Family History Narrative Family History Father - living, seizures Mother - living, HTN Social History Alcohol Use: No Tobacco Use: No Substance Abuse: No Allergies-Medications (Allergen,Severity, Reaction): Coded Allergies: amoxicillin (Verified Allergy, Severe, HIVES, 01/15/17) Home Meds Active Scripts Vit W/ Ferric Phospha (Vitafol Gummies 3.33-0.333-34.8 mg) 1 Chw Chw, 3 TAB PO DAILY, #90 BOTTLE 11 Refills Prov:Wilma Leonard 08/19/16 Reported Medications Albuterol 8.5 GM Inh (Proair Hfa 8.5 GM Inh) 90 Mcg/Act Aer, 1 PUFF INH Q4H Y for SHORTNESS OF BREATH, #1 INHALER 0 Refills 108 mcg/actuation 07/17/16 Review of Systems General / Constitutional: No: Fever, Chills Eyes: No: Diploplia, Blurred Vision, Visual changes HENT: Headaches (migraines), No: Lightheadedness Cardiovascular: No: Chest Pain or Discomfort, Palpitations Respiratory: No: Cough, Short of Breath Gastrointestinal: Nausea, Abdominal Pain, No: Vomiting, Diarrhea Genitourinary: Pelvic Pain, No: Urgency, Frequency, Dysuria, Discharge, Vaginal Bleeding Skin: No Rash, No Itching Neurologic: No: Dizziness, Syncope Physical Exam Narrative GENERAL: Well-nourished, well-developed patient. SKIN: Warm and dry. No rash or lesions. HEAD: Normocephalic and atraumatic. EYES: No scleral icterus. No injection or drainage. EOMI. ENT: No nasal drainage noted. Mucous membranes pink. Airway patent. NECK: Supple, trachea midline. No JVD. CARDIOVASCULAR: Regular rate and rhythm without murmurs, gallops, or rubs. RESPIRATORY: Breath sounds equal bilaterally. No accessory muscle use. ABDOMEN/GI: Abdomen soft, non-tender, bowel sounds present, no rebound, no guarding Gravid to 34 weeks size Fundal Height: 34cm GENITOURINARY: Cervix: [-] Dilatation: [-] Effacement: [-] Station: [-] Presentation: [-] Membranes: intact Uterine Contractions: none FHT's: Category: 1 Baseline: 145 Reactive: yes Variability: moderate Decels: none EXTREMITIES: No cyanosis or edema. BACK: Nontender without obvious deformity. No CVA tenderness. NEUROLOGICAL: Awake and alert. Motor and sensory grossly within normal limits. Five out of 5 muscle strength in all muscle groups. Normal speech. Data Data Vital Signs Reviewed: Yes Orders Orders Vital Signs (Adult) .ON ADMISSION (01/16/17 12:25) ^ Labor Status (01/16/17 12:25) Urinalysis - C+S If Indicated (01/16/17 12:25) ^ Non Stress Test (01/16/17 12:25) Diet Liquid (01/16/17 Lunch) MDM Narrative Course / MDM 21YO at 33/6 weeks presents with pelvic and low back pain with prior hx of preeclampsia and emergency C/S at last who is showing no contractions and monitor quiet; FHT reassuring, BL 145, reactive, moderate and no decels. Pt with no bleeding or discharge and nothing to suggest abruption. PLAN: -Urine dip negative -Pt indicates she hydrates well; normal cap refill -Monitor reassuring -Discharge home; will follow up on CBC and check for thrombocytopenia Pt discussed with Dr Barlow Diagnosis Diagnosis: Primary Impression: Abdominal pain affecting Additional Impression: Low back pain during in third trimester Disposition: 01 DISCHARGE HOME Bang Garcia MD R1 Jan 16, 2017 12:49
--- NOTE | 2017-01-16 13:13 | HHI.DCPOC ---
Discharge Care Plan Report Symptoms to Your Doctor -Temperature above 100.5 degrees -Redness, of incision or excessive or foul smelling drainage -Unusual pain or calf pain -Increased vaginal bleeding -Painful or difficulty urinating -Feelings of extreme sadness or anxiety after 2 weeks Goals to Promote Your Health * To prevent worsening of your condition and complications, please take your medications as prescribed and drink plenty of fluids. * To maintain your health at the optimal level, please follow up with your OB/ MANAGER NEW PRODUCT in 1 week. Directions to Meet Your Goals Take your medications as prescribed Follow your dietary instruction Follow activity as directed Ensure plenty of rest for recovery Drink fluids for hydration Keep your appointments as scheduled Take your immunizations and boosters as scheduled If your symptoms worsen call your PCP, if no PCP go to Urgent Care Center or Emergency Room Smoking is Dangerous to Your Health. Avoid second hand smoke Call the 24-hour crisis hotline for domestic abuse at Bang Garcia MD R1 Jan 16, 2017 13:13
[2017-01-16 13:36] LABS: BACTERIA, URINE OCC /hpf; BLOOD, URINE NEG (NEG); COMMENT (UR) CULT NOT INDICATED; CULTURE IF INDICATED CULT NOT INDICATED; GLUCOSE,URINE NEG (NEG); KETONE, URINE NEG (NEG); MUCUS URINE FEW /lpf (OCC); NITRITE,URINE NEG (NEG); PH, URINE 6.5 (5.0-8.5); SQUAMOUS EPITHELIAL CELL URINE 10 /hpf (0-5); URINE COLOR YELLOW (YELLW/STRAW)
[2017-01-27] MEDS ORDERED: ZANT150T2 PO (09:19)
== END 2017-01-16 13:30 | disposition home or self-care (01) ==
LOC: HOBED 11:38
DX: O26.893 Other specified pregnancy related conditions, third trimester (principal); R10.9 Unspecified abdominal pain; M54.5 Low back pain; Z3A.33 33 weeks gestation of pregnancy; Z79.82 Long term (current) use of aspirin
CPT/HCPCS: 59025; 81001

== ENCOUNTER 2017-02-04 12:09 | Emergency (ER) | payer OTHER ==
[~2017-02-04 12:09] MED LIST changes: +ZANT150T2 PO
[2017-02-04 12:32] VITALS: BP 121/72; PULSE 89
[2017-02-04 13:13] LABS: BILIRUBIN, URINE NEG (NEG); BLOOD, URINE NEG (NEG); GLUCOSE,URINE NEG (NEG); KETONE, URINE NEG (NEG); NITRITE,URINE NEG (NEG); SQUAMOUS EPITHELIAL CELL URINE 1 /hpf (0-5); TRANSITIONAL EPI CELLS, URINE <1 /hpf; URINE COLOR YELLOW (YELLW/STRAW); URINE LEUKOCYTE ESTERASE NEG (NEG)
--- NOTE | 2017-02-04 13:19 | PD ---
HPI Chief Complaint [place] Spotting Date Seen: Feb 04, 2017 Time Seen: 13:18 Travel History International Travel<30 Days: No Contact w/Intl Traveler<30Days: No Known Affected Area: No History of Present Illness HPI 21-year-old at 36/5 weeks presenting with pink spotting. Is a [facility] patient. States that last night and this morning, she noticed pink spots after wiping for urination. Denies any other discharge. States that these were the only episodes. Describes the second episode this morning is being darker. Endorses back pain and lower abdominal cramping that has worsened in the last couple days. Denies dysuria, recent sexual activity, or trauma. Endorses movement , denies leakage of fluids (recent). Last ultrasound was 01/27/17 and was within normal limits (BPP 8/8). No evidence of placenta previa, etc. No other complications this . All labs within normal limits. Blood type is B+. BP today is 121/72. Weeks Gestation: 36 Para: 1 : 2 History Past Medical History Narrative Medical Chronic migraines Asthma Bilateral ovarian cysts Obstetric History Obstetric History History of for preeclampsia and gestational diabetes mellitus in 2016 - baby was born at 35 weeks; weight 4 pounds, prolonged hospitalization on feeding tube Past Surgical History Narrative Surgical Denies significant recent history Family History Family History: Negative Social History Alcohol Use: No Tobacco Use: No Substance Abuse: No Allergies-Medications (Allergen,Severity, Reaction): Coded Allergies: amoxicillin (Verified Allergy, Severe, HIVES, 01/15/17) Home Meds Active Scripts Ranitidine (Zantac) 150 Mg Tab, 150 MG PO BID for Reduce Stomach Acid, #60 TAB 11 Refills Prov:Wilma Leonard 01/27/17 Vit W/ Ferric Phospha (Vitafol Gummies 3.33-0.333-34.8 mg) 1 Chw Chw, 3 TAB PO DAILY, #90 BOTTLE 11 Refills Prov:Wilma Leonard 08/19/16 Reported Medications Albuterol 8.5 GM Inh (Proair Hfa 8.5 GM Inh) 90 Mcg/Act Aer, 1 PUFF INH Q4H Y for SHORTNESS OF BREATH, #1 INHALER 0 Refills 108 mcg/actuation 07/17/16 Review of Systems Except as stated in HPI: all other systems reviewed are Neg Physical Exam Narrative GENERAL: Well-nourished, well-developed patient. NAD. SKIN: Warm and dry. No obvious rashes or areas of ecchymosis that would suggest systemic illness. EYES: No scleral icterus. No injection or drainage. NECK: No thyromegaly. Trachea midline. CARDIOVASCULAR: Regular rate and rhythm without murmurs, gallops, or rubs. RESPIRATORY: Breath sounds equal bilaterally. No accessory muscle use. GASTROINTESTINAL: Abdomen soft, non-tender, nondistended. MUSCULOSKELETAL: No cyanosis, or edema. BACK: Nontender without obvious deformity. No CVA tenderness. : Bimanual exam -no cervical motion tenderness. Uterus does not appear to be enlarged; has normal contours and is freely mobile. No uterine tenderness or obvious masses. Pelvic exam- Normally developed genitalia with no eruptions. No abnormal findings along the external genital tract (no masses, lacerations, ulcerations, friable areas, discharge, or foreign body). No foul smell. Vaginal lynch inspected- no obvious lesions, polyps, or masses appreciated. There is a moderate amount of yellow-white fluid discharge in the vaginal vault. Cervix inspected- cervix appears normal, white discharge seen exiting the outer cervical os. Otherwise, no blood visible on exam. Cervix: Midline Dilatation: None Uterine Contractions:uterine irritability FHT's: Category: 1 Baseline: 150 Reactive: Minimal accelerations Variability: moderate Decels: None Data Data Vital Signs Reviewed: Yes Orders Orders Vital Signs (Adult) .ON ADMISSION (02/04/17 12:55) ^ Labor Status (02/04/17 12:55) Urinalysis - C+S If Indicated (02/04/17 12:55) ^ Non Stress Test (02/04/17 12:55) ^ Hydration (02/04/17 12:55) Cbc No Diff, Includes Plts (02/04/17 12:55) Ob/Psych Drug Screen, Urine (02/04/17 12:55) Labs Laboratory Tests Test 02/04/17 12:35 MDM Medical Record Reviewed: Yes Plan Patient is a 21-year-old at 36/5 weeks presents to the ED to rule out vaginal bleeding. UA ordered, results negative for infection. Patient tested negative for G/C and labs, clinical signs and history do not point towards STI; however wet prep was ordered to rule out BV. Labs negative for BV, Trichomonas, and yeast. Discharge likely physiologic leukorrhea. Rest of exam reassuring, category 1 FHT. No concern for patient currently in labor. - Encourage patient to hydrate - counseled patient to return if obvious vaginal bleeding, frequent painful contractions, gush of fluid, no FM CARTER Be Diagnosis Diagnosis: Primary Impression: Vaginal discharge Additional Impression: Spotting in Disposition: DISCHARGE HOME Condition: Stable Sheila Swan MD R1 Feb 04, 2017 13:19
== END 2017-02-04 14:26 | disposition home or self-care (01) ==
LOC: HOBED 12:09
DX: O26.853 Spotting complicating pregnancy, third trimester (principal); O26.893 Other specified pregnancy related conditions, third trimester; M54.9 Dorsalgia, unspecified; O99.513 Diseases of the respiratory system complicating pregnancy, third trimester; J45.909 Unspecified asthma, uncomplicated; Z3A.36 36 weeks gestation of pregnancy; Z79.899 Other long term (current) drug therapy
CPT/HCPCS: 80307; 81001; 87210; 96372; 99284; G0481; J3010

== ENCOUNTER 2017-02-07 18:30 | Emergency (ER) | payer OTHER ==
--- NOTE | 2017-02-07 19:13 | PD ---
HPI Chief Complaint ctx Date Seen: Feb 07, 2017 Time Seen: 18:59 Travel History International Travel<30 Days: No Contact w/Intl Traveler<30Days: No Known Affected Area: No History of Present Illness HPI Pt is a 21y/o @ 37.0wks. She has [facility] with [facility]. She reports ctx which over a week which are 5-7m apart. No LOF or VB. +FM. is c /b h/o CS x1 (pt wants to ), short interval (conceived at 8m PP), h/o preE with G1 (on ASA), asthma (on inhaled steroids qday). Weeks Gestation: 37 Para: 1 : 2 History Past Medical History Narrative Medical asthma (no hospitalizations or intubations) Obstetric History Obstetric History 1. CS at term, preE 2. desires , on ASA 81mg Past Surgical History Narrative Surgical CS x1 Family History Family History: Negative Social History Alcohol Use: No Tobacco Use: No Substance Abuse: No Allergies-Medications (Allergen,Severity, Reaction): Coded Allergies: amoxicillin (Verified Allergy, Severe, HIVES, 01/15/17) Home Meds Active Scripts Ranitidine (Zantac) 150 Mg Tab, 150 MG PO BID for Reduce Stomach Acid, #60 TAB 11 Refills Prov:Wilma Leonard 01/27/17 Vit W/ Ferric Phospha (Vitafol Gummies 3.33-0.333-34.8 mg) 1 Chw Chw, 3 TAB PO DAILY, #90 BOTTLE 11 Refills Prov:Wilma Leonard 08/19/16 Reported Medications Albuterol 8.5 GM Inh (Proair Hfa 8.5 GM Inh) 90 Mcg/Act Aer, 1 PUFF INH Q4H Y for SHORTNESS OF BREATH, #1 INHALER 0 Refills 108 mcg/actuation 07/17/16 Review of Systems Except as stated in HPI: all other systems reviewed are Neg Physical Exam Narrative General: well developed, well nourished, no acute distress HEENT: normocephalic atraumatic, extraocular movements intact, neck supple Abdomen: soft, gravid, nontender, nondistended Uterus: fundus non-tender, term Extremities: full range of motion Skin: normal coloration, no rashes, no suspicious skin lesions noted Neurologic: cranial nerves 2-12 grossly intact, normal muscle tone, normal gait Psychiatric: normal mood and affect, appropriate FHTs: 140s, +accels, no decels, moderate variability, reactive [place]: quiet Cvx: cl/th/hi Data Data Vital Signs Reviewed: Yes Orders Orders Vital Signs (Adult) .ON ADMISSION (02/07/17 18:54) ^ Labor Status (02/07/17 18:54) Urinalysis - C+S If Indicated (02/07/17 18:54) ^ Non Stress Test (02/07/17 18:54) MDM Plan 21y/o @ 37.0wks with ctx, h/o CSx1, short preg interval. -- toco quiet -- cvx cl/th/hi -- UA neg for UTI -- pt counseled against given short interval; data supports safety if conception is delayed 12m following initial ; pt has a /preop consultation scheduled for 1 Dispo: stable for d/c home with precautions Diagnosis Diagnosis: Primary Impression: 37 weeks gestation of Additional Impressions: Uterine contractions during History of delivery, currently Short interval between pregnancies affecting , antepartum Asthma David Barlow MD Feb 07, 2017 19:13
[2017-02-07 20:10] LABS: BILIRUBIN, URINE NEG (NEG); BLOOD, URINE NEG (NEG); GLUCOSE,URINE 70 mg/dL (NEG); KETONE, URINE NEG (NEG); NITRITE,URINE NEG (NEG); PH, URINE 5.5 (5.0-8.5); SQUAMOUS EPITHELIAL CELL URINE 4 /hpf (0-5); URIC ACID CRYSTALS, URINE FEW /hpf; URINE COLOR YELLOW (YELLW/STRAW); URINE LEUKOCYTE ESTERASE NEG (NEG)
== END 2017-02-07 19:34 | disposition home or self-care (01) ==
LOC: HOBED 18:30
DX: O47.1 False labor at or after 37 completed weeks of gestation (principal); O99.513 Diseases of the respiratory system complicating pregnancy, third trimester; J45.909 Unspecified asthma, uncomplicated; Z3A.37 37 weeks gestation of pregnancy; Z79.51 Long term (current) use of inhaled steroids; Z79.899 Other long term (current) drug therapy; Z88.0 Allergy status to penicillin
CPT/HCPCS: 81001; 99283

== ENCOUNTER 2017-02-22 15:37 | Emergency (ER) | payer OTHER ==
--- NOTE | 2017-02-22 17:43 | PD ---
HPI Chief Complaint Contractions abdominal pain Date Seen: Feb 22, 2017 Time Seen: 16:30 Travel History International Travel<30 Days: No Contact w/Intl Traveler<30Days: No Known Affected Area: No History of Present Illness HPI Patient's 22-year-old white female G 2 P1 previous 1 [facility] and presents combining of contractions and abdominal pain. Denies bleeding but does describe some leakage of fluid. Amnio sure was done and was negative. Heart rate tracing is reactive and she is not deya regularly. Weeks Gestation: 39 Para: 1 : 2 Last Menstrual Period: Feb 22, 2017 History Obstetric History Obstetric History 1 the past for severe preeclampsia Past Surgical History Narrative Surgical 1 Social History Alcohol Use: No Tobacco Use: No Substance Abuse: No Allergies-Medications (Allergen,Severity, Reaction): Coded Allergies: amoxicillin (Verified Allergy, Severe, HIVES, 02/20/17) Home Meds Active Scripts Ranitidine (Zantac) 150 Mg Tab, 150 MG PO BID for Reduce Stomach Acid, #60 TAB 11 Refills Prov:Wilma Leonard 01/27/17 Vit W/ Ferric Phospha (Vitafol Gummies 3.33-0.333-34.8 mg) 1 Chw Chw, 3 TAB PO DAILY, #90 BOTTLE 11 Refills Prov:Wilma Leonard 08/19/16 Reported Medications Albuterol 8.5 GM Inh (Proair Hfa 8.5 GM Inh) 90 Mcg/Act Aer, 1 PUFF INH Q4H Y for SHORTNESS OF BREATH, #1 INHALER 0 Refills 108 mcg/actuation 07/17/16 Review of Systems General / Constitutional: No: Fever, Weight Gain, Chills, Other Eyes: No: Diploplia, Blurred Vision, Visual changes, Pain, Photophobia HENT: No: Headaches, Vertigo, Lightheadedness Cardiovascular: No: Irregular Rhythm, Chest Pain or Discomfort, Palpitations, Tachycardia, Syncope, Varicosities, Edema, Cyanosis Respiratory: No: Cough, Short of Breath, Other Gastrointestinal: Abdominal Pain, No: Nausea, Vomiting, Diarrhea Genitourinary: No: Decreased Urinary Output, Oliguria Musculoskeletal: No: Limited ROM, Weakness, Cramping, Edema, Pain Skin: No Rash, No Itching, No Dryness, No Lumps, No Change in Pigmentation, No Change in Nails, No Alopecia, No Lesions Neurologic: No: Weakness, Dizziness, Syncope, Focal Abnormalities, Coordination Problem, Headache, Slurred Speech, Seizures Psychiatric: No: Depression, Suicidal Ideations, Homicidal Ideation Endocrine: No: Heat Intolerance, Cold Intolerance, Polydipsia, Polyuria, Other Physical Exam Narrative GENERAL: Well-nourished, well-developed patient. SKIN: Warm and dry. HEAD: Normocephalic and atraumatic. EYES: No scleral icterus. No injection or drainage. ENT: No nasal drainage noted. Mucous membranes pink. Airway patent. NECK: Supple, trachea midline. No JVD. CARDIOVASCULAR: Regular rate and rhythm without murmurs, gallops, or rubs. RESPIRATORY: Breath sounds equal bilaterally. No accessory muscle use. BREASTS: Bilateral exam showed no masses , no retractions, no nipple discharge. ABDOMEN/GI: Abdomen soft, non-tender, bowel sounds present, no rebound, no guarding Gravid to [-39] weeks size Fundal Height: [39-] GENITOURINARY: External Genitalia: intact and normal in appearance BUS glands: [-] Cervix: [-] Dilatation: [3-] Effacement: [-50] Station: [-1] Presentation: [-vtx] Membranes: [intact amnisure neg] Uterine Contractions: [-no reg ctx] FHT's: Category: [-1] Baseline: [133-] Reactive: [-R] Variability: [-mod] Decels: [-none] EXTREMITIES: No cyanosis or edema. BACK: Nontender without obvious deformity. No CVA tenderness. NEUROLOGICAL: Awake and alert. Motor and sensory grossly within normal limits. Five out of 5 muscle strength in all muscle groups. Normal speech. Data Data Orders Orders Attending Discharge Order (02/22/17 ) Labs amnisure neg MDM Interpretation(s) Patient is 22-year-old white female at 39 weeks previous who presents planning of abdominal pain and contractions. No bleeding. She'll she was leaking some fluid and amnio sure was negative. heart tones are reactive and she is not deya regularly. Patient's cervix is 3/50 -1 which is no change since last check in the office. Plan Plan to discharge patient home to bedrest, Tylenol as needed. Increase fluid hydrate. Heating pad or hot bath this good for symptoms Diagnosis Diagnosis: Primary Impression: Previous section Additional Impression: Abdominal cramping affecting Ruled Out: False labor Disposition: 01 DISCHARGE HOME Condition: Stable Patient Instructions: General Instructions, Having Your Baby: The Labor Process (GEN), Movement (ED), Abdominal Pain in (ED) Departure Forms: Tests/Procedures Tejas Be II, MD Feb 22, 2017 17:43
[2017-02-28] MEDS ORDERED: ASPI81CH6 CHEW (12:27)
== END 2017-02-22 16:45 | disposition home or self-care (01) ==
LOC: HOBED 15:37
DX: O47.1 False labor at or after 37 completed weeks of gestation (principal); Z3A.39 39 weeks gestation of pregnancy; Z79.51 Long term (current) use of inhaled steroids; Z88.0 Allergy status to penicillin
CPT/HCPCS: 59025; 84112

== ENCOUNTER 2017-02-28 11:23 | Emergency (ER) | payer OTHER | END 2017-02-28 14:53 | disposition home or self-care (01) | LOC: HOBED 11:23 | DX: O76 Abnormality in fetal heart rate and rhythm complicating labor and delivery (principal); Z3A.40 40 weeks gestation of pregnancy | CPT/HCPCS: 76819; 99283 ==

== ENCOUNTER 2017-03-05 21:05 | Inpatient (IN) | payer OTHER ==
[~2017-03-05] VITALS: Ht 152.4 cm; Wt 98.0 kg
[~2017-03-05 21:05] MED LIST changes: +ASPI81CH6 CHEW
--- NOTE | 2017-03-05 21:43 | HHI.HP ---
HPI Chief Complaint Induction of labor Date Seen: Mar 05, 2017 Time Seen: 21:42 Travel History International Travel<30 Days: No Contact w/Intl Traveler<30Days: No Known Affected Area: No History of Present Illness HPI 22yo at [id number] here for induction of labor. Patient has a history of prior section at 35 weeks due to severe preeclampsia. Patient was primarily sectioned and not allowed to labor with an operative report from here at [facility] as a low transverse incision.Desires TOLAC. Has been maintained on 81mg aspirin, last dose was this am. Weeks Gestation: 40 Para: 1 : 2 History Past Medical History Narrative Medical Asthma - occasional use of albuterol. Obstetric History Obstetric History LTCS 2016 for severe preeclampsia Past Surgical History Narrative Surgical section Family History Family History: Negative Social History Alcohol Use: No Tobacco Use: Yes (previous smoker) Substance Abuse: No Allergies-Medications (Allergen,Severity, Reaction): Coded Allergies: amoxicillin (Verified Allergy, Severe, HIVES, 03/05/17) Home Meds Active Scripts Aspirin (Aspirin Low Dose) 81 Mg Chew, 81 MG CHEW DAILY, #30 TAB 0 Refills Prov:Elizabeth Fernandes MD R1 02/28/17 Ranitidine (Zantac) 150 Mg Tab, 150 MG PO BID for Reduce Stomach Acid, #60 TAB 11 Refills Prov:Wilma Leonard 01/27/17 Vit W/ Ferric Phospha (Vitafol Gummies 3.33-0.333-34.8 mg) 1 Chw Chw, 3 TAB PO DAILY, #90 BOTTLE 11 Refills Prov:Wilma Leonard 08/19/16 Reported Medications Albuterol 8.5 GM Inh (Proair Hfa 8.5 GM Inh) 90 Mcg/Act Aer, 1 PUFF INH Q4H Y for SHORTNESS OF BREATH, #1 INHALER 0 Refills 108 mcg/actuation 07/17/16 Review of Systems Except as stated in HPI: all other systems reviewed are Neg Physical Exam Narrative GENERAL: Well-nourished, well-developed patient. SKIN: Warm and dry. HEAD: Normocephalic and atraumatic. EYES: No scleral icterus. No injection or drainage. ENT: No nasal drainage noted. Mucous membranes pink. Airway patent. NECK: Supple, trachea midline. No JVD. CARDIOVASCULAR: Regular rate and rhythm without murmurs, gallops, or rubs. RESPIRATORY: Breath sounds equal bilaterally. No accessory muscle use. ABDOMEN/GI: Abdomen soft, non-tender, bowel sounds present, no rebound, no guarding Gravid to [-40] weeks size Fundal Height: [-] GENITOURINARY: External Genitalia: intact and normal in appearance BUS glands: [-nl] Cervix: [-]posterior Dilatation: [-] 3 Effacement: [-] 50 Station: [-] -3 Presentation: [-] vtx Membranes: [intact or ruptured]intact Uterine Contractions: [-]absent FHT's: Category: [-]1 Baseline: [-]140 Reactive: [-] mod Variability: [-]mod Decels: [-]absent EXTREMITIES: No cyanosis or edema. BACK: Nontender without obvious deformity. No CVA tenderness. NEUROLOGICAL: Awake and alert. Motor and sensory grossly within normal limits. Five out of 5 muscle strength in all muscle groups. Normal speech. Caprini VTE Risk Assessment Caprini VTE Risk Assessment: No/Low Risk (score <= 1) Caprini Risk Assessment Model Point Value = 1 Point Value = 2 Point Value = 3 Point Value = 5 Age 41-60 Minor surgery BMI > 25 kg/m2 Swollen legs Varicose veins or History of unexplained or recurrent spontaneous Oral contraceptives or hormone replacement Sepsis (< 1 month) Serious lung disease, including pneumonia (< 1 month) Abnormal pulmonary function Acute myocardial infarction Congestive heart failure (< 1 month) History of inflammatory bowel disease Medical patient at bed rest Age 61-74 Arthroscopic surgery Major open surgery (> 45 min) Laparoscopic surgery (> 45 min) Malignancy Confined to bed (> 72 hours) Immobilizing plaster cast Central venous access Age >= 75 History of VTE Family history of VTE Factor V Leiden Prothrombin 35290H Lupus anticoagulant Anticardiolipin antibodies Elevated serum homocysteine Heparin-induced thrombocytopenia Other congenital or acquired thrombophilia Stroke (< 1 month) Elective arthroplasty Hip, pelvis, or leg fracture Acute spinal cord injury (< 1 month) Prophylaxis Regimen Total Risk Factor Score Risk Level Prophylaxis Regimen 0-1 Low Early ambulation 2 Moderate Order ONE of the following: *Sequential Compression Device (SCD) *Heparin 5000 units SQ BID 3-4 Higher Order ONE of the following medications: *Heparin 5000 units SQ TID *Enoxaparin/Lovenox 40 mg SQ daily (WT < 150 kg, CrCl > 30 mL/min) *Enoxaparin/Lovenox 30 mg SQ daily (WT < 150 kg, CrCl > 10-29 mL/min) *Enoxaparin/Lovenox 30 mg SQ BID (WT < 150 kg, CrCl > 30 mL/min) AND/OR *Sequential Compression Device (SCD) 5 or more Highest Order ONE of the following medications: *Heparin 5000 units SQ TID (Preferred with Epidurals) *Enoxaparin/Lovenox 40 mg SQ daily (WT < 150 kg, CrCl > 30 mL/min) *Enoxaparin/Lovenox 30 mg SQ daily (WT < 150 kg, CrCl > 10-29 mL/min) *Enoxaparin/Lovenox 30 mg SQ BID (WT < 150 kg, CrCl > 30 mL/min) AND *Sequential Compression Device (SCD) Data Data Vital Signs Reviewed: Yes Group B Strep: Negative Assessment/Plan Problem List: (1) 40 weeks gestation of ICD Codes: Z3A.40 - 40 weeks gestation of (2) History of severe pre-eclampsia ICD Codes: Z87.59 - Personal history of other complications of , childbirth and the puerperium (3) Previous delivery affecting , antepartum ICD Codes: O34.219 - Maternal care for unspecified type scar from previous delivery (4) Desires (vaginal after ) trial ICD Codes: O34.219 - Maternal care for unspecified type scar from previous delivery Assessment and Plan 40 w 5 days gestation with previous low transverse for severe preeclampsia. Desires TOLAC. Understands the risk of uterine rupture after and the increased risks of and maternal morbidity and mortality. Although cervix is 3cm, vertex is very high and posterior. Plan low dose pitocin overnight with possible AROM with descent of the vertex. Lili Cabrales MD Mar 05, 2017 21:43
[2017-03-05] MEDS: LACTATED RINGER'S 1000 ML INJ 1,000 ML IV SCH (21:51)
[2017-03-05] MEDS ORDERED: LACTATED RINGER'S 1000 ML INJ 1,000 ML IV PRN (21:51)
[2017-03-05] MEDS ORDERED: MINERAL OIL 10 ML VIAL TOPICAL PRN (22:00)
[2017-03-05] MEDS ORDERED: OXYTOCIN 30 UNITS-500ML PREMIX 500 ML IV ONE (22:00)
[2017-03-05] MEDS ORDERED: LIDOCAINE HCL 1% 50 ML VIAL INFIL PRN (22:00)
[2017-03-05] MEDS ORDERED: OXYTOCIN 30 UNITS-500ML PREMIX 500 ML IV PRN (22:00)
[2017-03-05] MEDS ORDERED: LIDOCAINE HCL 1% 50 ML VIAL I-DERMAL PRN (22:00)
[2017-03-05] MEDS ORDERED: CITRIC ACID-SODIUM CITRATE LIQ 30 ML UDC PO SCH (22:00)
[2017-03-05] MEDS ORDERED: ONDANSETRON HCL 4 MG/2 ML VIAL IV PUSH PRN (22:00)
[2017-03-05] MEDS ORDERED: SODIUM CHLORID 0.9% 500 ML INJ 500 ML IV PRN (22:00)
[2017-03-05] MEDS ORDERED: SODIUM CHLOR 0.9% 1000 ML INJ 1,000 ML IV PRN (22:11)
[2017-03-05 22:13] VITALS: BP 128/84; PULSE 83
[2017-03-05] MEDS ORDERED: ZOLPIDEM TARTRATE 10 MG TAB PO PRN (22:15)
[2017-03-05 22:18] LABS: AUTOMATED NEUTROPHIL # 7.4 TH/MM3 (1.8-7.7); BASOPHIL % 0.2 % (0.0-2.0); EOSINOPHIL # 0.1 TH/MM3 (0-0.4); EOSINOPHIL % 1.2 % (0.0-4.0); HEMATOCRIT 36.8 % (35.0-46.0); HEMOGLOBIN 13.1 GM/DL (11.6-15.3); LYMPHOCYTE # 1.7 TH/MM3 (1.0-4.8); MEAN CELL VOLUME 84.7 FL (80.0-100.0); MEAN CORPUSCULAR HEMOGLOBIN 30.3 PG (27.0-34.0); MEAN CORPUSCULAR HGB CONC 35.7 % (32.0-36.0); MEAN PLATELET VOLUME 10.5 FL (7.0-11.0); MONO % 6.1 % (0.0-8.0); MONOCYTE # 0.6 TH/MM3 (0-0.9); NEUT % 75.5 % (16.0-70.0); PLATELET COUNT 166 TH/MM3 (150-450); RED BLOOD COUNT 4.34 MIL/MM3 (4.00-5.30); RED CELL DISTRIBUTION WIDTH 13.2 % (11.6-17.2); WHITE BLOOD COUNT 9.8 TH/MM3 (4.0-11.0)
[2017-03-05 22:22] LABS: AMORPHOUS SEDIMENT, URINE RARE; BILIRUBIN, URINE NEG (NEG); BLOOD, URINE NEG (NEG); CALCIUM OXALATE CRYSTALS,URINE OCC /hpf; GLUCOSE,URINE NEG (NEG); KETONE, URINE TRACE mg/dL (NEG); MUCUS URINE MOD /lpf (OCC); NITRITE,URINE NEG (NEG); PH, URINE 5.5 (5.0-8.5); SQUAMOUS EPITHELIAL CELL URINE 4 /hpf (0-5); URINE COLOR YELLOW (YELLW/STRAW); URINE LEUKOCYTE ESTERASE SMALL (NEG)
[2017-03-05 23:31] VITALS: BP 124/66; PULSE 88
[2017-03-05 23:33] VITALS: RESP 18; TEMP 97.6
[2017-03-06] VITALS (89 sets, daily range): BP systolic 95–138; BP diastolic 54–95; PULSE 18–108; RESP 8–20; TEMP 97.7–98.9; O2SAT 99
--- NOTE | 2017-03-06 08:05 | HHI.PR ---
LEADER TIER Note Note FHR Category 1 tracing with baseline 140, moderate variability, occasional variable decelerations. Cervix 5/80/-2, AROM clear fluid. IUPC/FSE placed. Lili Cabrales MD Mar 06, 2017 08:05
[2017-03-06] MEDS ORDERED: fentaNYL 2MCG-BUPIV 0.125% INJ 100 ML ONE ×2 (08:10→16:42)
[2017-03-06] MEDS ORDERED: MEASLES, MUMPS, RUBELLA VACCINE 0.5 ML VIAL SQ ONE (16:00)
[2017-03-06] MEDS ORDERED: DIPHTH/TETANUS/ACEL PERTUSSIS (BOOSTER) 0.5 ML VIAL/PFS IM ONE (16:00)
[2017-03-06] MEDS ORDERED: LIDOCAINE 2%/EPINEPHrine PF 1:200,000 20ML SDV ONE (19:28)
[2017-03-06] MEDS ORDERED: BUPIVACAINE HCL PF 0.25% 10 ML VIAL ONE (19:28)
[2017-03-06] MEDS ORDERED: NO SYSTEM NARCOTICS PRN (20:15)
[2017-03-06] MEDS ORDERED: ePHEDrine/NS 25 MG/5 ML SYRINGE IV PUSH PRN (20:15)
[2017-03-06] MEDS ORDERED: fentaNYL 2MCG-BUPIV 0.125% 100 ML EPIDURAL SCH (20:15)
[2017-03-06] MEDS ORDERED: DO NOT ADMINISTER ANTICOAGULANTS PRN (20:15)
[2017-03-06] MEDS: LACTATED RINGER'S 1000 ML INJ 1,000 ML IV SCH (20:28)
[2017-03-06] MEDS ORDERED: ZOLPIDEM TARTRATE 5 MG TAB PO PRN (23:00)
[2017-03-06] MEDS ORDERED: DOCUSATE SODIUM 50 MG/SENNA 8.6 MG TAB PO PRN (23:00)
[2017-03-06] MEDS ORDERED: BENZOCAINE 20% TOPICAL SPRAY 60 ML CAN TOPICAL PRN (23:00)
[2017-03-06] MEDS ORDERED: SODIUM CHLORIDE 0.9% FLUSH 10 ML FLUSH IV FLUSH PRN (23:00)
[2017-03-06] MEDS ORDERED: OXYTOCIN 30 UNITS-500ML PREMIX 500 ML IV SCH (23:00)
[2017-03-06] MEDS ORDERED: oxyCODONE/ACETAMINOPHEN 5 MG/325 MG TAB PO PRN ×2 (23:00)
[2017-03-06] MEDS ORDERED: ALUMINUM/MAGNESIUM/SIMETH 30 ML CUP PO PRN (23:00)
[2017-03-06] MEDS ORDERED: ONDANSETRON ODT 4 MG TAB PO PRN (23:00)
[2017-03-06] MEDS ORDERED: WITCH HAZEL 50%/GLYCERIN 12.5% 40 PAD JAR TOPICAL PRN (23:00)
--- NOTE | 2017-03-06 23:01 | PD.OB.DELI ---
Weeks gestation: 40 Pt started active labor?: Yes Medical induction of labor?: Yes Artificial rupture of membrane: Yes Anesthesia: Epidural Episiotomy: None Vaginal Delivery: Normal Presentation: Occiput anterior Nuchal Cord: x1, Other (body cord) Delayed cord clamping (45 sec): Yes Delivery date: Mar 06, 2017 Delivery time: 22:38 One Minute : 6 Five Minute : 6 Ten Minute : 7 Weight: 3140g Placenta: Spontaneous delivery, Intact, 3 vessel cord Laceration: Vaginal laceration (left vaginal wall), 1 deg Repair: Vicryl running (3-0 vicryl) Estimated blood loss: 250cc Additional Information Placenta delivered spontaneously prior to cord transection. A cord gas could not be obtained because the placenta was still connected to the . Supervised by Joan Bello MD, R3 Mar 06, 2017 23:01
[2017-03-07] VITALS (10 sets, daily range): BP systolic 108–137; BP diastolic 49–82; PULSE 16–107; RESP 16–18; TEMP 97.9–98.7; O2SAT 98
[2017-03-07] MEDS: IBUPROFEN 800 MG TAB PO PRN ×3 (03:01→18:12)
[2017-03-07] MEDS ORDERED: SODIUM CHLORIDE 0.9% FLUSH 10 ML FLUSH IV FLUSH SCH (09:00)
--- NOTE | 2017-03-07 09:35 | HHI.OB ---
Subjective Post Day: 1 Remarks Ms. Oconnor is a 22 yo who is PPD 1 from () 03/06 at 2238. Patient afebrile with stable vital signs overnight. Patient has been doing well since delivery; she reports that her abdominal pain is mild. Patient does not report significant vaginal bleeding. Patient has been ambulating since delivery. No dysuria. Patient passing gas well. No chest pain, shortness of breath, or leg swelling. Objective Vitals/I&O Vital Signs Date Time Temp Pulse Resp B/P (MAP) Pulse Ox O2 Delivery O2 Flow Rate FiO2 03/07/17 03:05 98.2 99 16 108/49 (68) 03/07/17 01:45 98.7 16 03/07/17 01:32 84 113/61 (78) 03/07/17 01:00 18 03/07/17 00:45 97 18 123/72 (89) 03/07/17 00:30 18 03/07/17 00:30 107 119/76 (90) 03/07/17 00:15 89 135/80 (98) 03/07/17 00:00 99 137/82 (100) 03/06/17 23:45 89 128/83 (98) 03/06/17 23:30 83 131/78 (95) 03/06/17 23:26 18 03/06/17 23:15 87 18 120/74 (89) 03/06/17 23:15 98.9 03/06/17 23:09 88 123/66 (85) 03/06/17 23:07 85 125/72 (89) 03/06/17 22:05 95 03/06/17 21:45 18 03/06/17 21:30 78 125/66 (85) 03/06/17 21:30 18 03/06/17 21:15 88 18 121/76 (91) 03/06/17 21:00 18 03/06/17 21:00 70 117/69 (85) 03/06/17 20:45 80 117/71 (86) 03/06/17 20:37 16 03/06/17 20:30 18 03/06/17 20:30 76 113/63 (80) 03/06/17 20:26 81 114/60 (78) 03/06/17 20:15 16 03/06/17 20:00 77 16 105/56 (72) 03/06/17 19:45 86 16 98/57 (71) 03/06/17 19:30 89 132/90 (104) 03/06/17 19:30 16 03/06/17 19:18 98.1 03/06/17 19:15 87 134/85 (101) 03/06/17 19:00 82 130/85 (100) 03/06/17 18:45 83 138/89 (105) 03/06/17 18:30 88 121/85 (97) 03/06/17 18:16 80 129/83 (98) 03/06/17 18:00 91 131/79 (96) 03/06/17 17:45 91 119/68 (85) 03/06/17 17:39 93 132/81 (98) 03/06/17 17:15 77 120/78 (92) 03/06/17 17:00 98.0 18 03/06/17 17:00 92 123/79 (94) 03/06/17 16:45 90 129/82 (98) 03/06/17 16:30 75 114/66 (82) 03/06/17 16:15 74 136/95 (109) 03/06/17 16:00 81 134/88 (103) 03/06/17 15:45 75 128/85 (99) 03/06/17 15:30 76 128/84 (99) 03/06/17 15:15 75 124/76 (92) 03/06/17 15:14 98.1 03/06/17 15:14 20 03/06/17 15:00 80 124/80 (95) 03/06/17 14:45 78 116/75 (89) 03/06/17 14:30 85 118/77 (91) 03/06/17 14:15 80 115/69 (84) 03/06/17 14:00 77 121/73 (89) 03/06/17 13:45 74 119/69 (86) 03/06/17 13:30 78 121/75 (90) 03/06/17 13:15 78 118/72 (87) 03/06/17 13:00 73 119/73 (88) 03/06/17 12:45 75 118/74 (89) 03/06/17 12:30 98.0 77 8 127/80 (96) 03/06/17 12:15 80 120/74 (89) 03/06/17 12:00 79 120/74 (89) 03/06/17 11:45 74 121/69 (86) 03/06/17 11:30 79 119/70 (86) 03/06/17 11:15 77 116/72 (87) 03/06/17 11:00 83 118/72 (87) 03/06/17 10:45 79 116/68 (84) 03/06/17 10:30 97.8 82 116/68 (84) 03/06/17 10:15 86 108/67 (81) 03/06/17 10:00 81 112/62 (79) 03/06/17 09:45 85 107/62 (77) 03/06/17 09:30 86 107/64 (78) Objective Remarks GENERAL: Well-nourished, well-developed patient. CARDIOVASCULAR: Regular rate and rhythm without murmurs RESPIRATORY: CTAB; normal rate ABDOMEN/GI: Abdomen soft, non-tender. Fundus: Firm, non-tender at umbilicus. GENITOURINARY: Light to moderate bleeding. EXTREMITIES: No cyanosis or edema, non-tender, without signs of DVT. Medications and IVs Current Medications Medications (Trade) Dose Ordered Sig/Ivy Route Start Time Stop Time Status Last Admin (NS Flush) 2 ml BID IV FLUSH 03/07/17 09:00 (NS Flush) 2 ml UNSCH PRN IV FLUSH 03/06/17 23:00 (Tylenol) 650 mg Q4H PRN PO 03/06/17 23:00 (Motrin) 800 mg Q8H PRN PO 03/06/17 23:00 03/07/17 03:01 (Percocet 5-325 Mg) 1 tab Q4H PRN PO 03/06/17 23:00 (Percocet 5-325 Mg) 2 tab Q4H PRN PO 03/06/17 23:00 (Americaine 20% Top Spr) 1 spray Q4H PRN TOPICAL 03/06/17 23:00 03/07/17 03:00 (Tucks Pads) 1 applic QID PRN TOPICAL 03/06/17:00 03/07/17 03:00 (Radha-Colace) 2 tab Q12H PRN PO 03/06/17 23:00 03/07/17 03:00 (Ambien) 5 mg HS PRN PO 03/06/17 23:00 (Mag-Al Plus Susp Liq) 15 ml Q8H PRN PO 03/06/17 23:00 (Zofran Odt) 4 mg Q6H PRN PO 03/06/17 23:00 Assessment/Plan Problem List: (1) 40 weeks gestation of ICD Codes: Z3A.40 - 40 weeks gestation of (2) History of severe pre-eclampsia ICD Codes: Z87.59 - Personal history of other complications of , childbirth and the puerperium (3) Previous delivery affecting , antepartum ICD Codes: O34.219 - Maternal care for unspecified type scar from previous delivery Assessment and Plan Ms. Oconnor is a 22 yo who is PPD 1 from 03/06 at 2238 -Continue routine care -Continue to monitor VS; vaginal bleeding -Continue PRN Percocet and Motrin for pain control -Continue to encourage ambulation -Continue to encourage Luis Sotomayor MD, R3 Mar 07, 2017 09:35
[2017-03-07] MEDS: ACETAMINOPHEN 325 MG TAB PO PRN ×2 (10:43→18:12)
[2017-03-08] MEDS: IBUPROFEN 800 MG TAB PO PRN (03:08)
[2017-03-08] MEDS ORDERED: PERI PO (07:19)
[2017-03-08] MEDS ORDERED: IBUP1TAB7 PO (07:19)
--- NOTE | 2017-03-08 07:43 | HHI.DCPOC ---
Discharge Care Plan Diagnosis: (1) care following vaginal delivery Report Symptoms to Your Doctor -Temperature above 100.5 degrees -Redness, of incision or excessive or foul smelling drainage -Unusual pain or calf pain -Increased vaginal bleeding -Painful or difficulty urinating -Feelings of extreme sadness or anxiety after 2 weeks Goals to Promote Your Health * To prevent worsening of your condition and complications * To maintain your health at the optimal level Directions to Meet Your Goals Take your medications as prescribed Follow your dietary instruction Follow activity as directed Ensure plenty of rest for recovery Drink fluids for hydration Keep your appointments as scheduled Take your immunizations and boosters as scheduled If your symptoms worsen call your PCP, if no PCP go to Urgent Care Center or Emergency Room Smoking is Dangerous to Your Health. Avoid second hand smoke Call the 24-hour crisis hotline for domestic abuse at Robb Antonio MD Mar 08, 2017 07:43
--- NOTE | 2017-03-08 07:43 | HHI.OB ---
Subjective Post Day: 2 Remarks day #2. AFVSS overnight. Pain well-controlled. Decreased lochia. Denies dysuria. No breast tenderness. She is feeding the baby via breast. Appetite good. No nausea or vomiting. Endorses flatus. No bowel movement. Ambulating well. Denies calf pain, shortness of breath, or cough. Otherwise, she is doing well this morning and has no other complaints. Objective Vitals/I&O Vital Signs Date Time Temp Pulse Resp B/P (MAP) Pulse Ox O2 Delivery O2 Flow Rate FiO2 03/07/17 20:00 98.0 80 16 114/76 (89) 98 03/07/17 08:00 16 114/73 (87) 03/07/17 08:00 78 03/07/17 08:00 97.9 16 98 Objective Remarks GENERAL: Well-nourished, well-developed patient. CARDIOVASCULAR: Regular rate and rhythm without murmurs RESPIRATORY: CTAB; normal rate ABDOMEN/GI: Abdomen soft, non-tender. Fundus: Firm, non-tender at umbilicus. GENITOURINARY: Light to moderate bleeding. EXTREMITIES: No cyanosis or edema, non-tender, without signs of DVT. Medications and IVs Current Medications Medications (Trade) Dose Ordered Sig/Ivy Route Start Time Stop Time Status Last Admin (NS Flush) 2 ml BID IV FLUSH 03/07/17 09:00 (NS Flush) 2 ml UNSCH PRN IV FLUSH 03/06/17 23:00 (Tylenol) 650 mg Q4H PRN PO 03/06/17 23:00 03/07/17 18:12 (Motrin) 800 mg Q8H PRN PO 03/06/17 23:00 03/08/17 03:08 (Percocet 5-325 Mg) 1 tab Q4H PRN PO 03/06/17 23:00 (Percocet 5-325 Mg) 2 tab Q4H PRN PO 03/06/17 23:00 (Americaine 20% Top Spr) 1 spray Q4H PRN TOPICAL 03/06/17 23:00 03/07/17 03:00 (Tucks Pads) 1 applic QID PRN TOPICAL 03/06/17 23:00 03/07/17 03:00 (Radha-Colace) 2 tab Q12H PRN PO 03/06/17 23:00 03/07/17 03:00 (Ambien) 5 mg HS PRN PO 03/06/17 23:00 (Mag-Al Plus Susp Liq) 15 ml Q8H PRN PO 03/06/17 23:00 (Zofran Odt) 4 mg Q6H PRN PO 03/06/17 23:00 Assessment/Plan Problem List: (1) 40 weeks gestation of ICD Codes: Z3A.40 - 40 weeks gestation of (2) History of severe pre-eclampsia ICD Codes: Z87.59 - Personal history of other complications of , childbirth and the puerperium (3) Previous delivery affecting , antepartum ICD Codes: O34.219 - Maternal care for unspecified type scar from previous delivery Assessment and Plan Ms. Oconnor is a 22 yo who is PPD 2 from 03/06 at 2238 -Continue routine care -Continue to monitor VS; vaginal bleeding -Continue PRN Percocet and Motrin for pain control -Continue to encourage ambulation -Continue to encourage -F/u 6 weeks with OB -Re control, she desires IUD -D/c today Robb Antonio MD Mar 08, 2017 07:43
[2017-03-08 08:00] VITALS: BP 95/54; PULSE 78; RESP 18; TEMP 97.8; O2SAT 97
--- NOTE | 2017-03-08 11:47 | PD.CIRC ---
Circumcision Procedure Note Procedure Date: Mar 08, 2017 Procedure Time: 11:46 Procedure: Circumcision Pre-procedure diagnosis: circumcision Post-procedure diagnosis: circumcision Informed Consent: The risks, benefits, indications, potential complications, and alternatives were explained to the patient/family and informed consent obtained. The baby was brought to the procedure room where a time-out was done to ID the patient and the procedure. Performing Physician: Lili Cabrales Anesthesia used: 1% lidocaine injected Type of block: ring block Device used: Mogen Description: The baby was prepped and draped in a sterile fashion. The procedure followed standard technique. The baby tolerated the procedure well without complication. Findings: Normal male genitalia Estimated blood loss: <5cc Specimen: Lili Hermosillo MD Mar 08, 2017 11:47
== END 2017-03-08 15:48 | disposition home or self-care (01) | DRG 775 ==
LOC: H2EA 21:05 → H1EA 03-07 02:29
PROVIDERS: ADMIT Obstetrics & Gynecology Obstetrics; ATTEND Obstetrics & Gynecology Obstetrics
PROC: 3E033VJ Introduction of Other Hormone into Peripheral Vein, Percutaneous Approach (ICD-10-PCS; 2017-03-05)
PROC: 10E0XZZ Delivery of Products of Conception, External Approach (ICD-10-PCS; principal; 2017-03-06)
PROC: 0KQM0ZZ Repair Perineum Muscle, Open Approach (ICD-10-PCS; 2017-03-06)
PROC: 10907ZC Drainage of Amniotic Fluid, Therapeutic from Products of Conception, Via Natural or Artificial Opening (ICD-10-PCS; 2017-03-06)
DX: O34.211 Maternal care for low transverse scar from previous cesarean delivery (principal); O71.4 Obstetric high vaginal laceration alone; J45.909 Unspecified asthma, uncomplicated; O69.81X0 Labor and delivery complicated by cord around neck, without compression, not applicable or unspecified; O76 Abnormality in fetal heart rate and rhythm complicating labor and delivery; O99.52 Diseases of the respiratory system complicating childbirth; Z37.0 Single live birth; Z3A.40 40 weeks gestation of pregnancy; Z87.891 Personal history of nicotine dependence; Z88.1 Allergy status to other antibiotic agents
CPT/HCPCS: 59025; 80307; 81001; 85025; 86900; 86901; 90715; J2590; J3010; J7120

== ENCOUNTER 2017-04-13 23:44 | Emergency (ER) | payer OTHER ==
[~2017-04-13] VITALS: Ht 157.5 cm; Wt 87.0 kg
[~2017-04-13 23:44] MED LIST changes: +IBUP1TAB7 PO; +PERI PO; -PREN1CHW7 PO
[2017-04-14 00:05] VITALS: BP 144/74; PULSE 125; RESP 20; TEMP 98.5; O2SAT 100
[2017-04-14] MEDS ORDERED: SODIUM CHLOR 0.9% 1000 ML INJ 1,000 ML IV ONE ×2 (00:30)
[2017-04-14] MEDS ORDERED: diphenhydrAMINE HCL 50 MG/ML VIAL IV PUSH ONE (00:30)
[2017-04-14] MEDS ORDERED: PROCHLORPERAZINE INJ 10 MG/2 ML VIAL IV PUSH ONE (00:30)
--- NOTE | 2017-04-14 00:40 | PD ---
HPI Chief Complaint: Headache Time Seen by Provider: 00:22 Travel History International Travel<30 days: No Contact w/Intl Traveler<30days: No Traveled to known affect area: No History of Present Illness HPI 22-year-old female presents emergency department with complaints of a migraine headache followed by upper respiratory tract symptoms. She states that she has had a headache on and off now for a month. She has had upper respiratory tract symptoms for 1 week. She states that this is a typical migraine headache for her. She has taken all the [id number] medications without relief. Her headache is global. But appears to be more frontal. Positive runny nose, cough, congestion. She states that she gets bronchitis 4- 6 times a year. Patient states that she had a the middle of February. She is currently breast-feeding. She denies any fever. No nausea but no vomiting. No abdominal pain or diarrhea. No urinary symptoms. Symptoms are moderate. Worsened with lights and noises. PFSH Past Medical History Asthma: Yes Bipolar Disorder: Yes Depression: Yes Developmental Delay: No Diabetes: No Diminished Hearing: No GERD: Yes Headaches: Yes Musculoskeletal: Yes (back pain x 1 and 1/2 years per pt) Respiratory: Yes (BRONCHITIS) Immunizations Current: Yes Migraines: Yes Tetanus Vaccination: < 5 Years Influenza Vaccination: No ?: Unknown : 1 Para: 1 Miscarriage: 0 : 0 Ovarian Cysts: Yes Past Surgical History Section: Yes Gynecologic Surgery: Yes (C-SECT) Social History Alcohol Use: No Tobacco Use: Yes (previous smoker) Substance Use: No Allergies-Medications (Allergen,Severity, Reaction): Coded Allergies: amoxicillin (Verified Allergy, Severe, HIVES, 04/14/17) Reported Meds & Prescriptions Reported Meds & Active Scripts Active Reported Proair Hfa 8.5 GM Inh (Albuterol Sulfate) 90 Mcg/Act Aer 1 Puff INH Q4H PRN 108 mcg/actuation Physical Exam Narrative GENERAL: Well-developed, well-nourished in no apparent distress. Nontoxic appearing. HEAD: Normocephalic, atraumatic. EYES: Pupils equal round and reactive. Extraocular motions intact. No scleral icterus. No injection or drainage. ENT: Nose clear. Throat without erythema, tonsillar hypertrophy or exudate. Uvula midline. Airway patent. NECK: Trachea midline. Supple, nontender, moves head freely. No central bony tenderness or spasm. CARDIOVASCULAR: Regular tachycardic rate and rhythm without murmurs, gallops, or rubs. RESPIRATORY: Clear to auscultation. Breath sounds equal bilaterally. No wheezes , rales, or rhonchi. GASTROINTESTINAL: Abdomen soft, non-tender, nondistended. No hepato-splenomegaly , or palpable masses. No guarding. EXTREMITIES: No clubbing, cyanosis, or edema. No joint tenderness. BACK: Nontender without deformity. No flank tenderness. NEUROLOGICAL: Awake, alert and oriented x 3 .Cranial nerves grossly intact. Motor and sensory grossly within normal limits. Normal speech. Data Data Last Documented VS Vital Signs Date Time Temp Pulse Resp B/P (MAP) Pulse Ox O2 Delivery O2 Flow Rate FiO2 04/14/17 01:34 101 16 127/63 (84) 100 Room Air 04/14/17 00:05 98.5 Orders Orders Iv Access Insert/Monitor (04/14/17 00:28) Sodium Chlor 0.9% 1000 Ml Inj (Ns 1000 M (04/14/17 00:30) Sodium Chlor 0.9% 1000 Ml Inj (Ns 1000 M (04/14/17 00:30) Diphenhydramine Inj (Benadryl Inj) (04/14/17 00:30) Prochlorperazine Inj (Compazine Inj) (04/14/17 00:30) Ed Discharge Order (04/14/17 01:49) MDM Medical Decision Making Medical Screen Exam Complete: Yes Emergency Medical Condition: Yes Medical Record Reviewed: Yes Differential Diagnosis MDM: High Differential diagnoses: Pneumonia, bronchitis, URI, cephalgia, migraine, sinus headache Narrative Course IV access is obtained. Patient was given 2 L of normal saline, Benadryl 50 mg IV and Compazine 10 mg IV. The patient is reexamined. Her pulse is now normal. She is feeling much better. Her headaches is completely resolved. She is sleeping in the examination room. This is cephalgia, dehydration, URI Diagnosis Primary Impression: Cephalgia Additional Impressions: Dehydration URI Patient Instructions: General Instructions Additional Instructions: Rest. Increase fluids. Tylenol and Advil. Robitussin-DM. Doxycycline. Followup with your Dr. in one week. Return to the ER for any problems. Med/Other Pt SpecificInfo: Prescription(s) given Scripts Doxycycline Hyclate (Doxycycline Hyclate) 100 Mg Cap 100 MG PO BID for Infection for 7 Days, #14 CAP 0 Refills Prov: Hina Han MD 04/14/17 Disposition: 01 DISCHARGE HOME Condition: Brando Barcenas Apr 14, 2017 00:40
[2017-04-14 01:34] VITALS: BP 127/63; PULSE 101; RESP 16; O2SAT 100
[2017-04-14] MEDS ORDERED: DOXY100C PO (01:50)
== END 2017-04-14 01:59 | disposition home or self-care (01) ==
LOC: NEPD 23:44
DX: R51 Headache (principal); E86.0 Dehydration; J06.9 Acute upper respiratory infection, unspecified; J45.909 Unspecified asthma, uncomplicated; Z87.891 Personal history of nicotine dependence
CPT/HCPCS: 96361; 96374; 96375; 99284; J0780; J1200; J7030

== ENCOUNTER 2017-07-05 11:41 | Emergency (ER) | payer MEDICAID, OTHER ==
[~2017-07-05 11:41] MED LIST changes: -ASPI81CH6 CHEW; +DOXY100C PO; -IBUP1TAB7 PO; -PERI PO; -ZANT150T2 PO
[2017-07-05 11:43] VITALS: BP 140/67; PULSE 104; RESP 16; TEMP 98.3; O2SAT 98
[2017-07-05] MEDS ORDERED: SODIUM CHLORIDE 0.9% FLUSH 10 ML FLUSH IV FLUSH PRN (12:00)
[2017-07-05 12:20] LABS: AUTOMATED NEUTROPHIL # 3.7 TH/MM3 (1.8-7.7); BASOPHIL % 0.3 % (0.0-2.0); EOSINOPHIL # 0.1 TH/MM3 (0-0.4); EOSINOPHIL % 2.9 % (0.0-4.0); HEMATOCRIT 43.3 % (35.0-46.0); HEMOGLOBIN 14.8 GM/DL (11.6-15.3); LYMPH % 13.7 % (9.0-44.0); LYMPHOCYTE # 0.7 TH/MM3 (1.0-4.8); MEAN CELL VOLUME 83.8 FL (80.0-100.0); MEAN CORPUSCULAR HEMOGLOBIN 28.6 PG (27.0-34.0); MEAN CORPUSCULAR HGB CONC 34.1 % (32.0-36.0); MEAN PLATELET VOLUME 9.8 FL (7.0-11.0); MONO % 5.9 % (0.0-8.0); MONOCYTE # 0.3 TH/MM3 (0-0.9); NEUT % 77.2 % (16.0-70.0); PLATELET COUNT 203 TH/MM3 (150-450); RED BLOOD COUNT 5.17 MIL/MM3 (4.00-5.30); RED CELL DISTRIBUTION WIDTH 13.6 % (11.6-17.2); WHITE BLOOD COUNT 4.8 TH/MM3 (4.0-11.0)
[2017-07-05 12:38] LABS: ALBUMIN 3.9 GM/DL (3.4-5.0); ALT (GPT) 16 U/L (10-53); AST (GOT) 13 U/L (15-37); BICARBONATE 23.2 MEQ/L (21.0-32.0); BLOOD UREA NITROGEN 13 MG/DL (7-18); CALCIUM 8.7 MG/DL (8.5-10.1); CHLORIDE 110 MEQ/L (98-107); CREATININE 0.82 MG/DL (0.50-1.00); GLOMERULAR FILTRATION RATE 86 ML/MIN (>89); GLUCOSE,RANDOM 92 MG/DL (74-106); SODIUM (NA) 143 MEQ/L (136-145)
[2017-07-05 12:40] LABS: ALKALINE PHOSPHATASE 87 U/L (45-117); BILIRUBIN, URINE NEG (NEG); BLOOD, URINE NEG (NEG); GLUCOSE,URINE NEG (NEG); KETONE, URINE NEG (NEG); MUCUS URINE FEW /lpf (OCC); NITRITE,URINE NEG (NEG); PH, URINE 5.5 (5.0-8.5); SQUAMOUS EPITHELIAL CELL URINE 8 /hpf (0-5); TOTAL PROTEIN 7.9 GM/DL (6.4-8.2); URINE COLOR YELLOW (YELLW/STRAW); URINE LEUKOCYTE ESTERASE NEG (NEG)
[2017-07-05] MEDS ORDERED: ONDANSETRON ODT 4 MG TAB PO ONE (12:45)
[2017-07-05] MEDS ORDERED: DICYCLOMINE HCL 10 MG CAP PO ONE (12:45)
[2017-07-05] MEDS ORDERED: DICY10 PO (13:09)
[2017-07-05] MEDS ORDERED: ZOFR4TAB3 SL (13:09)
--- NOTE | 2017-07-05 13:09 | PD ---
HPI Chief Complaint: GI Complaint Time Seen by Provider: 12:19 Travel History International Travel<30 days: No Contact w/Intl Traveler<30days: No Traveled to known affect area: No History of Present Illness HPI 22-year-old woman presents emerged department with abdominal pain. She reports that she has had abdominal and bladder for to see her doctor multiple times in the past. She has had 3 [address] scans the past couple years on our system. She presents today because she has been feeling sick for couple days with diffuse abdominal pain, maybe a little worse in the lower abdomen. Is been associate with nausea vomiting, and over the past 24 hours she has had for 5 episodes of copious watery diarrhea. No definite sick contacts. Fever yesterday. Denies any urinary symptoms. No vaginal discharge or vaginal bleeding. She had a baby about 4 months ago. She sexually active one male partner. Did not really eat breakfast because of the vomiting. History Past Medical History Medical History: Denies Significant Hx : 1 Para: 1 Social History Alcohol Use: No Tobacco Use: Yes (previous smoker) Allergies-Medications (Allergen,Severity, Reaction): Coded Allergies: amoxicillin (Verified Allergy, Severe, HIVES, 04/14/17) Reported Meds & Prescriptions Reported Meds & Active Scripts Active Doxycycline Hyclate 100 Mg Cap 100 Mg PO BID 7 Days Reported Proair Hfa 8.5 GM Inh (Albuterol Sulfate) 90 Mcg/Act Aer 1 Puff INH Q4H PRN 108 mcg/actuation Review of Systems Except as stated in HPI: all other systems reviewed are Neg Physical Exam Narrative GENERAL: 22-year-old woman I am uncomfortable, nontoxic SKIN: Focused skin assessment warm/dry. HEAD: Atraumatic. Normocephalic. EYES: Pupils equal and round. No scleral icterus. No injection or drainage. ENT: No nasal bleeding or discharge. Mucous membranes pink and moist. NECK: Trachea midline. No JVD. CARDIOVASCULAR: Regular rate and rhythm. No murmur appreciated. RESPIRATORY: No accessory muscle use. Clear to auscultation. Breath sounds equal bilaterally. GASTROINTESTINAL: Abdomen is obese and soft. Mild diffuse tenderness. No focal tenderness. No rebound or guarding peer MUSCULOSKELETAL: No obvious deformities. No clubbing. No cyanosis. No edema. NEUROLOGICAL: Awake and alert. No obvious cranial nerve deficits. Motor grossly within normal limits. Normal speech. PSYCHIATRIC: Appropriate mood and affect; insight and judgment normal. Data Data Last Documented VS Vital Signs Date Time Temp Pulse Resp B/P (MAP) Pulse Ox O2 Delivery O2 Flow Rate FiO2 07/05/17 11:55 100 07/05/17 11:43 98.3 104 16 140/67 (91) Orders Orders Complete Blood Count With Diff (07/05/17 11:52) Comprehensive Metabolic Panel (07/05/17 11:52) Lipase (07/05/17 11:52) Urinalysis - C+S If Indicated (07/05/17 11:52) Iv Access Insert/Monitor (07/05/17 11:52) Sodium Chloride 0.9% Flush (Ns Flush) (07/05/17 12:00) Ed Urine Pregnancytest Poc (07/05/17 11:52) Dicyclomine (Bentyl) (07/05/17 12:45) Ondansetron Odt (Zofran Odt) (07/05/17 12:45) Labs Laboratory Tests Test 07/05/17 12:10 White Blood Count 4.8 TH/MM3 Red Blood Count 5.17 MIL/MM3 Hemoglobin 14.8 GM/DL Hematocrit 43.3 % Mean Corpuscular Volume 83.8 FL Mean Corpuscular Hemoglobin 28.6 PG Mean Corpuscular Hemoglobin Concent 34.1 % Red Cell Distribution Width 13.6 % Platelet Count 203 TH/MM3 Mean Platelet Volume 9.8 FL Neutrophils (%) (Auto) 77.2 % Lymphocytes (%) (Auto) 13.7 % Monocytes (%) (Auto) 5.9 % Eosinophils (%) (Auto) 2.9 % Basophils (%) (Auto) 0.3 % Neutrophils # (Auto) 3.7 TH/MM3 Lymphocytes # (Auto) 0.7 TH/MM3 Monocytes # (Auto) 0.3 TH/MM3 Eosinophils # (Auto) 0.1 TH/MM3 Basophils # (Auto) 0.0 TH/MM3 CBC Comment DIFF FINAL Differential Comment Urine Color YELLOW Urine Turbidity HAZY Urine pH 5.5 Urine Specific [place] 1.033 Urine Protein TRACE mg/dL Urine Glucose (UA) NEG mg/dL Urine Ketones NEG mg/dL Urine Occult Blood NEG Urine Nitrite NEG Urine Bilirubin NEG Urine Urobilinogen 2.0 MG/DL Urine Leukocyte Esterase NEG Urine RBC 1 /hpf Urine WBC 1 /hpf Urine Squamous Epithelial Cells 8 /hpf Urine Mucus FEW /lpf Microscopic Urinalysis Comment CULT NOT INDICATED Blood Urea Nitrogen 13 MG/DL Creatinine 0.82 MG/DL Random Glucose 92 MG/DL Total Protein 7.9 GM/DL Albumin 3.9 GM/DL Calcium Level 8.7 MG/DL Alkaline Phosphatase 87 U/L Aspartate Amino Transf (AST/SGOT) 13 U/L Alanine Aminotransferase (ALT/SGPT) 16 U/L Total Bilirubin 1.0 MG/DL Sodium Level 143 MEQ/L Potassium Level 3.8 MEQ/L Chloride Level 110 MEQ/L Carbon Dioxide Level 23.2 MEQ/L Anion Gap 10 MEQ/L Estimat Glomerular Filtration Rate 86 ML/MIN Lipase 71 U/L MDM Medical Decision Making Medical Screen Exam Complete: Yes Emergency Medical Condition: Yes Interpretation(s) LABS: CBC is unremarkable CMP is unremarkable Lipase is normal UA is unremarkable Differential Diagnosis Gastroenteritis, cholecystitis, colitis, appendicitis, ovarian cyst, endometritis, other Narrative Course Medical decision making 22-year-old woman with diffuse abdominal pain, nausea vomiting, copious watery diarrhea, fever reported yesterday. Looks well now. No fever now. Mild diffuse abdominal tenderness now. Nonsurgical abdomen. No focal tenderness. No evidence of gallbladder disease. Multiple negative CT scans in the past. This point think the risk of repeat CT scans of his benefit. Would recommend treatment for likely infectious gastroenteritis but not certainly so. She agrees to return if she has any worsening fevers abdominal tenderness or pain, or any other new Diagnosis Primary Impression: Abdominal pain Patient Instructions: General Instructions Additional Instructions: Follow-up with your primary doctor in the next 2-4 days. Return emerged department with abdominal pain, high fevers, bloody diarrhea, or any other new or worsening symptoms. Med/Other Pt SpecificInfo: Prescription(s) given Scripts Ondansetron Odt (Zofran Odt) 4 Mg Tab 4 MG SL Q8HR Y for Nausea/Vomiting, #12 TAB 0 Refills Prov: Benigno Phillips MD 07/05/17 Dicyclomine (Bentyl) 10 Mg Cap 10 MG PO TID Y for Bowel Management, #12 CAP 0 Refills Prov: Benigno Phillips MD 07/05/17 Disposition: 01 DISCHARGE HOME Condition: Stable Benigno Phillips MD July 05, 2017 13:09
== END 2017-07-05 13:35 | disposition home or self-care (01) ==
LOC: NEPD 11:41
DX: R10.84 Generalized abdominal pain (principal); R19.7 Diarrhea, unspecified
CPT/HCPCS: 80053; 81001; 83690; 84703; 85025; 99283